=== PATIENT | female | born 1980 | race Caucasian/White ===

== ENCOUNTER → 2022-10-30 08:47 | Outpatient (BNVA) | payer MEDICARE, OTHER, SELFPAY | PROVIDERS: PCP Family Medicine; Visit Provider Registered Nurse | DX: Z79.899 Other long term (current) drug therapy (principal); F51.5 Nightmare disorder | CPT/HCPCS: 80053; 80061; 80164; 82306; 82607; 83036; 84443; 85025 ==

== ENCOUNTER → 2024-05-12 16:25 | Outpatient (BNVA) | payer MEDICARE, OTHER, SELFPAY ==
[2023-03-05 11:23] VITALS: BP 137/89; BMI 51.2
== END ==
PROVIDERS: PCP Family Medicine; Visit Provider Psychiatry & Neurology Psychiatry
DX: Z79.899 Other long term (current) drug therapy (principal)
CPT/HCPCS: 80053; 80061; 80164; 83036; 84443; 85025

== ENCOUNTER 2025-06-12 16:14 | Inpatient (IN) | payer MEDICARE, MEDICAID, SELFPAY ==
[2023-03-05 11:23] VITALS: BP 137/89; BMI 51.2
[2025-06-12 16:15] VITALS: BP 177/120; PULSE 76; RESP 16; TEMP 36.6; O2SAT 97; BMI 47.6
--- NOTE | 2025-06-12 16:18 | W.ED.GENADLT ---
HPI - General Adult General: Chief complaint: Psychiatric Symptoms Stated complaint: SI/HI Time Seen by Provider: 06/12/25 16:15 History of Present Illness: 44-year-old female who presents to the emergency room via EMS from the [facility]. She arrived there and was making homicidal and suicidal comments. Patient informed endorsed to me that she was very angry she done with everything. She says she has many different ways that she could harm herself she declines to extrapolate any further denies doing anything to harm herself to this point. She also commented that she became very upset with the social welfare clerk at the [facility] and wanted to hurt her. She has no behavioral outburst while she is here. She is seen at. [facility] and [place] regularly. 1 previous hospitalization in 2017 Associated symptoms: Deny chest pain, dyspnea or rash Related Data Home Medications ?Medication ?Instructions ?Recorded ?Confirmed albuterol sulfate 90 mcg/actuation 2 puff inhalation QID PRN 10/30/22 06/12/25 aerosol inhaler Shortness Of Breath Or Wheezing levothyroxine 112 mcg capsule 112 mcg PO DAILY 10/30/22 06/12/25 tiotropium bromide 18 mcg capsule 1 cap inhalation DAILY 05/12/24 06/12/25 with inhalation device (Spiriva with HandiHaler) aspirin 325 mg tablet 325 mg PO DAILY 11/03/24 06/12/25 lisinopril 10 mg tablet 10 mg PO DAILY 11/03/24 06/12/25 folic acid 1 mg tablet 1 mg PO DAILY 06/12/25 06/12/25 Previous Rx's ?Medication ?Instructions ?Recorded benztropine 2 mg tablet 2 mg PO BEDTIME #30 tabs 05/10/25 buspirone 15 mg tablet 45 mg (3 x 15 mg) PO BEDTIME #90 05/10/25 tabs divalproex 500 mg tablet,delayed 1,500 mg (3 x 500 mg) PO BEDTIME 05/10/25 release (Depakote) #90 tabs duloxetine 60 mg capsule,delayed 60 mg PO .daily in AM #30 caps 05/10/25 release haloperidol 5 mg tablet 25 mg (5 x 5 mg) PO BEDTIME #150 05/10/25 tabs prazosin 5 mg capsule 5 mg PO BEDTIME #30 caps 05/10/25 trazodone 100 mg tablet 50 - 100 mg (0.5 - 1 x 100 mg) PO 05/10/25 DAILY #30 tabs Allergies Allergy/AdvReac Type Severity Reaction Status Date / Time bupropion (From Wellbutrin) Allergy Mild Tremors Verified 05/10/25 12:09 fluoxetine (From Prozac) Allergy Mild ADR-Nausea Verified 05/10/25 12:09 alprazolam (From Xanax) Allergy nausea Verified 05/10/25 12:09 Review of Systems Const: Denies: fever(s) or chills Card: Denies: chest pain Resp: Denies: dyspnea GI: Denies: abdominal pain : Denies: dysuria, urinary frequency or urinary urgency Musc: Denies: neck pain or back pain Skin/Breast: Denies: rash PFSH ED PFSH: Medical History Hypersomnia Snoring Insomnia Chronic post-traumatic stress disorder Borderline personality disorder Schizoaffective disorder, bipolar type Nightmares Psychiatric care Physical Exam Const: COMMON NORMALS: no acute distress GENERAL APPEARANCE: cooperative and comfortable ORIENTATION/CONSCIOUSNESS: Yes awake, Yes oriented to person, Yes oriented to place and Yes oriented to time HENMT: COMMON NORMALS: normocephalic, atraumatic and hearing grossly normal bilaterally HEAD & SCALP: normocephalic and atraumatic Resp: COMMON NORMALS: normal respiratory effort, No retractions, No use of accessory muscles and clear to auscultation bilaterally AUSCULTATION: clear to auscultation bilaterally Cardio: COMMON NORMALS: regular rate, regular rhythm and No murmurs present (Cardio) RATE: regular rate RHYTHM: regular rhythm GI: COMMON NORMALS: Soft to palpation and No hepatosplenomegaly present AUSCULTATION: Yes normoactive bowel sounds PALPATION: Yes Soft to palpation, No Tenderness to palpation present (GI), No Guarding due to palpation present (GI) and Yes No hepatosplenomegaly present Extremity: COMMON NORMALS: normal to inspection, capillary refill normal, no clubbing, cyanosis or edema, no calf tenderness and no pedal edema Neuro: SENSORIUM/ORIENTATION: Yes oriented to person, Yes oriented to place and Yes oriented to time Skin: COMMON NORMALS: no rashes or lesions noted GENERAL SKIN EXAM: no rashes or lesions noted Course Vital Signs: Vital signs: Vital Signs Temperature 98 F 06/12/25 16:15 Pulse Rate 76 06/12/25 16:15 Respiratory Rate 16 06/12/25 16:15 Blood Pressure 177/120 06/12/25 16:15 Pulse Oximetry 97 06/12/25 16:15 Oxygen Delivery Me thod Room Air 06/12/25 16:15 MDM - General Adult Medical Decision Making Medical decision making Social determinants: Poor social support I reviewed the patient's medical record. I reviewed the patient's current home meds Alternate historians: None Differential diagnosis suicidal ideation, homicidal ideation, depression Lab Review: Labs reviewed. Very mild elevation in white count no signs of infection on exam. CMP normal toxicology was negative Imaging: None Assessment of risk: Level of risk: High Hospitalization considerations: Admit for suicidal ideation Reexamination: Unchanged Assessment and plan: Patient placed on a 96-hour hold for suicidal ideation. Discussed Dr. Heart orders written will admit. Medical Records I reviewed the patient's medical records. Lab Data I reviewed the patient's lab results. 06/12/25 16:28 06/12/25 16:28 Laboratory Results WBC 11.58 10^3/uL (3.29-11.43) H 06/12/25 16:28 RBC 5.53 10^6/uL (3.85-5.65) 06/12/25 16:28 Hgb 15.90 g/dL (11.27-16.99) 06/12/25 16:28 Hct 46.8 % (36-47) 06/12/25 16:28 MCV 84.6 fl (85-98) L 06/12/25 16:28 MCH 28.8 pg (27-33) 06/12/25 16:28 MCHC 34.0 g/dL (30-55) 06/12/25 16:28 RDW 12.9 % (12.1-15.1) 06/12/25 16:28 Plt Count 241 10^3/cmm (157-399) 06/12/25 16:28 MPV 10.2 fL (7.4-10.4) 06/12/25 16:28 Neut % (Auto) 69.1 % 06/12/25 16:28 Lymph % (Auto) 23.7 % 06/12/25 16:28 Arroyo % (Auto) 4.9 % 06/12/25 16: Eos % (Auto) 1.6 % 06/12/25 16: Baso % (Auto) 0.4 % 06/12/25 16:28 Neut # (Auto) 7.98 10^3/uL (1.8-7.7) H 06/12/25 16: Lymph # (Auto) 2.8 10^3/uL (0.8-4.8) 06/12/25 16:28 Arroyo # (Auto) 0.6 10^3/uL (0.2-0.9) 06/12/25 16: Eos # (Auto) 0.2 10^3/uL (0.0-0.8) 06/12/25 16: Baso # (Auto) 0.1 10^3/uL (0.0-0.1) 06/12/25 16: Nucleated RBC % (auto) 0 % 06/12/25 16: Nucleated RBCs # 0.0 /100WBC 06/12/25 16:28 Sodium 134 mmol/L (136-145) L 06/12/25 16: Potassium 4.2 mmol/L (3.5-5.1) 06/12/25 16: Chloride 100 mmol/L (98-107) 06/12/25 16: Carbon Dioxide 24 mmol/L (22-29) 06/12/25 16: Anion Gap 14.2 (5-19) 06/12/25 16:28 BUN 7 mg/dL (6-20) 06/12/25 16: Creatinine 0.7 mg/dL (0.5-0.9) 06/12/25 16:28 GFR Calculation 91.3 mL/min (90-130) 06/12/25 16:28 Glucose 104 mg/dL (65-115) 06/12/25 16: Calculated Osmolality 276 mOsm/kg (285-295) L 06/12/25 16:28 Calcium 9.4 mg/dL (8.5-10.5) 06/12/25 16: Total Bilirubin 0.3 mg/dL (0.15-1.2) 06/12/25 16: AST 21 U/L (0-32) 06/12/25 16:28 ALT 24 U/L (0-33) 06/12/25 16:28 Alkaline Phosphatase 184 U/L (35-105) H 06/12/25 16:28 Total Protein 7.1 g/dL (6.6-8.7) 06/12/25 16:28 Albumin 3.9 g/dL (3.5-5.2) 06/12/25 16:28 Globulin 3.2 g/dL (1.3-4.6) 06/12/25 16:28 Salicylates < 0.3 mg/dL (3-10) L 06/12/25 16:28 Acetaminophen < 5.0 ug/mL (10-30) L 06/12/25 16:28 No radiology studies performed this visit Discharge Plan Discharge Patient Disposition: Admitted As Inpatient Admit Provider: Moris Heart Clinical Impression: Suicidal ideation, Borderline personality disorder, Schizoaffective disorder, bipolar type, Chronic post-traumatic stress disorder Condition: Stable Coding Level of Care Code ED Utility Division Project Manager for Sharda Carvajal
--- OUTSIDE RECORDS SUMMARY | 2025-06-12 16:19 | XMS_ITS | Encounter Summary ---
Author Organization [facility] Address [address] [place] [address] Care Team Providers Care Clinical Trial Manager Name Role Phone Tammie Flores MD Primary Care Provider [phone]- [phone] Encounter Details Date Type Department Care Team (Latest Contact Info) Description 04/12/2025 Results Follow-Up [facility] Cancer [facility] Hematology [place] [address] [place] [address] Davie Ramirez MD [address] [place] [address] HOMOCYSTEINE, COMPREHENSIVE METABOLIC PANEL, CBC WITH DIFFERENTIAL Social History Tobacco Use Types Packs/Day Years Used Date Smoking Tobacco: Every Day Cigarettes 1.5 25 Smokeless Tobacco: Never Comments Unknown Sex and Gender Information Value Date Recorded Sex Assigned at Not on file 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 Gender Identity Not on file Sexual Orientation Not on file documented as of this encounter Plan of Treatment Upcoming Encounters Date Type Department Care Team (Late st Contact Info) Description 10/09/2025 1:30 PM CDT Office Visit [facility] Hematology [place] [address] [phone] Davie Ramirez MD [address] [place] [address] documented as of this encounter Visit Diagnoses Not on filedocumented in this encounter Care Teams Clinical Trial Manager Relationship Specialty Start Date End Date Tammie Flores MD [address] [place] [address] PCP - General Family Practice 11/03/23 documented as of this encounter
--- OUTSIDE RECORDS SUMMARY | 2025-06-12 16:19 | XMS_ITS | Clinical Summary ---
Author Organization [facility] Address [address] [address] Phone Care Team Providers Care Electronic Test Technician Name Role Phone Tammie Flores MD Primary Care Provider [phone]- [phone] Allergies Active Allergy Reactions Criticality Noted Date Comments Sulfamethoxazole-Trimethoprim Wheezing Medium 2023 Bupropion Itching Low 09/23/2023 Clonazepam Other Low 09/23/2023 Lethargic Clonidine Other Low 09/23/2023 Fluoxetine Other Low 09/23/2023 Medications albuterol (Proventil;Vent pedro) 90 mcg/actuation inhaler Inhale 2 puffs every 4 (four) hours if needed. 3 Active DULoxetine (Cymbalta) [address] capsule Take 60 mg by mouth 1 (one) time each day. 4 Active divalproex (Depakote) 500 mg EC tablet Take 1,500 mg by mouth every night. 4 Active furosemide (Lasix) 40 mg tablet Take 40 mg by mouth 1 (one) time each day. 4 Active haloperidoL (Haldol) 5 mg tablet Take 25 mg by mouth every night. 4 Active levothyroxine (Synthroid, Levoxyl) 112 mcg tablet Take 112 mcg by mouth 1 (one) time each day. 3 Active nystatin (Mycostatin) 100,000 unit/gram powder Apply 1 Application topically 2 (two) times a day. 3 Active Klor-Con M20 20 mEq ER tablet Take 20 mEq by mouth 1 (one) time each day. 4 Active prazosin (Minipress) 5 mg capsule Take 5 mg by mouth every night. 4 Active propranoloL (Inderal) 40 mg tablet Take 40 mg by mouth 2 (two) times a day. 4 Active montelukast (Singulair) 10 mg tablet Take 10 mg by mouth 1 (one) time each day. 4 Active busPIRone (Buspar) 15 mg tablet Take 45 mg by mouth every night. 4 Active metFORMIN (Glucophage) 500 mg tablet Take 500 mg by mouth 2 (two) times a day. 4 Active medroxyPROGESTE Tc (Depo-Provera) 150 mg/mL syringe injection syringe Inject 1 mg into the shoulder, thigh, or buttocks every 3 (three) months. 4 Active cholecalciferol (Vitamin D-3) 25 mcg (1,000 unit) tablet Take 1,000 Units by mouth 1 (one) time each day. Active calcium 500 mg calcium (1,250 mg) tablet Take 1 tablet by mouth 1 (one) time each day. Active traZODone (Desyrel) 100 mg tablet Take 100 mg by mouth every night. Active benztropine (Cogentin) 1 mg tablet Take 2 mg by mouth every night. Active lisinopriL (Prinivil, Zestril) 30 mg tabletIndicatio ns:hypertension Take 30 mg by mouth 1 (one) time each day. Active apixaban (Eliquis) 5 mg tablet Take 2 tablets (10 mg total) by mouth 2 (two) times a day for 5 days, THEN 1 tablet (5 mg total) 2 (two) times a day. 80 tablet 4 Active Active Problems Problem Noted Date Diagnosed Date Acute saddle pulmonary embolism 09/23/2023 Acute saddle pulmonary embol ism, unspecified whether acute cor pulmonale present 09/23/2023 Class 3 severe obesity due t o excess calories with serious comorbidity and body mass index (BMI) of 50.0 to 59.9 in adult 09/23/2023 Social History Tobacco Use Types Packs/Day Years Used Date Smoking Tobacco: Every Day Cigarettes 1 29.9 Started: 1995 Passive Smoke Exposure: Current Smokeless Tobacco: Never Tobacco Cessation:Ready to Q uit: Yes; Counseling Given: No Alcohol Use Standard Drinks/Week Comments Never 0 (1 standard drink = 0.6 oz pur e alcohol) [facility] Utilities Answer Date Recorded In the past 12 months has e electric, gas, oil, or water company threatened to shut off services in your home? Patient declined 09/24/2023 Humiliation, Afraid, Rape, and Kick questionnair e Answer Date Recorded Within the last year, have y ou been afraid of your partner or ex-partner? Patient declined 09/24/2023 Within the last year, have y ou been humiliated or emotionally abused in other ways by your partner or ex-partner? Patient declined 09/24/2023 Within the last year, have y ou been kicked, hit, slapped, or otherwise physically hurt by your partner or ex-partner? Patient declined 09/24/2023 Within the last year, have y ou been raped or forced to have any kind of sexual activity by your partner or ex-partner? Patient declined 09/24/2023 Social Connection and Isolation Panel Answer Date Recorded In a typical week, how many times do you talk on the phone with family, friends, or neighbors? Patient declined 09/24/2023 How often do you get togethe r with friends or relatives? Patient declined 09/24/2023 How often do you attend rastafarian or gnosticist serv ices? Patient declined 09/24/2023 Do you belong to any clubs o r organizations such as rastafarian groups, unions, fraternal or athletic groups, or school groups? Patient declined 09/24/2023 How often do you attend meet ings of the clubs or organizations you belong to? Patient declined 09/24/2023 Are you , , di vorced, , never , or living with a partner? Patient declined 09/24/2023 AUDIT-C Answer Date Recorded Q1: How often do you have a drink containing alc ohol? Patient declined 09/24/2023 Q2: How many drinks containi ng alcohol do you have on a typical day when you are drinking? Patient declined 09/24/2023 Q3: How often do you have si x or more drinks on one occasion? Patient declined 09/24/2023 Overall Financial Resource Strain (CARDIA) Answe r Date Recorded How hard is it for you to pa y for the very basics like food, housing, medical care, and heating? Patient declined 09/24/2023 [facility] - Occupational Stress Questionnaire Answer Date Recorded Do you feel stress - tense, restless, nervous, or anxious, or unable to sleep at night because your mind is troubled all the time - these days? Patient declined 09/24/2023 Exercise Vital Sign Answer Date Recorde d On average, how many days pe r week do you engage in moderate to strenuous exercise (like a brisk walk)? Patient declined On average, how many minutes do you engage in exercise at this level? Patient declined 09/24/2023 Hunger Vital Sign Answer Date Recorded Within the past 12 months, y ou worried that your food would run out before you got the money to buy more. Patient declined Within the past 12 months, t he food you bought just didn't last and you didn't have money to get more. Patient declined PRAPARE - Transportation Answer Date Re corded In the past 12 months, has l ack of transportation kept you from medical appointments or from getting medications? Patient declined 09/24/2023 In the past 12 months, has l ack of transportation kept you from meetings, work, or from getting things needed for daily living? Patient declined 09/24/2023 Housing Stability Vital Sign Answer Iglesia e Recorded In the last 12 months, was t here a time when you were not able to pay the mortgage or rent on time? Patient declined 09/24/19 24 In the last 12 months, how many places have you lived? 1 09/24/2023 In the last 12 months, was t here a time when you did not have a steady place to sleep or slept in a care home (including now)? Patient declined 09/24/2023 Comments No Sex and Gender Information Value Date Recorded Sex Assigned at Not on file Legal Sex Female 10:47 AM CDT Gender Identity Not on file Sexual Orientation Not on file Last Filed Vital Signs Vital Sign Reading Time Taken Comments Blood Pressure 130/65 09/25/2023 10:04 AM CDT Pulse 75 09/25/2023 10:04 AM CDT Temperature 36.1 C (96.9 F) 09/25/2023 10:04 AM CDT Respiratory Rate 26 09/25/2023 10:04 AM CDT Oxygen Saturation 97% 09/25/2023 10:04 AM CDT Inhaled Oxygen Concentration - - Weight 143 kg (315 lb 7.7 oz) 09/25/2023 2:51 AM CDT Height 167.6 cm (5' 6 ) 09/23/2023 11:30 AM CDT Body Mass Index 50.92 09/23/2023 11:30 AM CDT Plan of Treatment Health Maintenance Due Date Last Done Comments Lipid Panel 1981 MMR Vaccines (1 of 1 - Standard series) 1982 Varicella Vaccines (1 of 2 - 13+ 2-dose series) 1994 Depression Screening 11/20/1999 Diabetes Screening 11/20/1999 Social Drivers of Health (SDoH) 11/20/1999 Hepatitis B Vaccines (1 of 3 - 19+ 3-dose series) 2000 Pneumococcal Vaccines (1 of 2 - PCV) 2000 Medicare Initial AWV [id number] 11/10/2002 Pap Smear 2002 HPV Vaccines (1 - 3-dose SCDM series) 2008 Cervical Cancer Screening 11/20/2011 HPV/Cotest 11/20/2011 Mammogram 2021 Creatinine Level 09/23/2024 09/24/2023 Potassium Level 09/23/2024 09/24/2023 COVID-19 Vaccine ( - season) 2025 Influenza Vaccine (#1) 2025 3, 04/24/2017, 09/16/2016, Additional history exists DTaP,Tdap,and Td Vaccines (7 - Td or Tdap) 10/29/2026 10/29/2016, 07/26/2013, 04/10/1993, Additional history exists Zoster Vaccines (1 of 2) 11/20/2031 RSV Vaccines (1 - 1-dose 75+ series) 2056 IPV Vaccines Completed 02/23/1987, 06/12, 06/24/1982 HIB Vaccines Aged Out No longer eligi ble based on patient's age to complete this topic Hepatitis A Vaccines Aged Out No long er eligible based on patient's age to complete this topic Meningococcal B Vaccine Aged Out No l onger eligible based on patient's age to complete this topic Meningococcal Vaccine Aged Out No jannie rafal eligible based on patient's age to complete this topic Rotavirus Vaccines Aged Out No longer eligible based on patient's age to complete this topic Procedures Procedure Name Priority Date/Time Associated Diagnosis Comments COMPREHENSIVE METABOLIC PANEL Routine 09/24/2023 4:26 AM CDT from Last 3 Months or Most Recently Relevant to Health Maintenance Results * (ABNORMAL) Comprehensive Metabolic Panel (09/24/2023 4:26 AM CDT) [facility] Glucose 94 70 - 100 mg/dL LAB CHEMISTRY METHOD 09/24/2023 4:58 AM CDT [facility] BUN 6(L) 7 - 17 mg/dL LAB CHEMISTRY METHOD 09/24/2023 4:58 AM CDT [facility] Creatinine 0.72 0.52 - 1.04 mg/dl LAB CHEMISTRY METHOD 09/24/2023 4:58 AM CDT [facility] BUN/Creatinine Ratio 8(L) 12 - 17 LAB CHEMISTRY METHOD 09/24/2023 4:58 AM CDT [facility] Sodium 138 135 - 145 mmol/L LAB CHEMISTRY METHOD 09/24/2023 4:58 AM CDT [facility] Potassium 4.1 3.6 - 5.0 mmol/L LAB CHEMISTRY METHOD 09/24/2023 4:58 AM CDT [facility] Chloride 107 101 - 111 mmol/L LAB CHEMISTRY METHOD 09/24/2023 4:58 AM CDT [facility] Total Carbon Dioxide 29 22 - 30 mmol/L LAB CHEMISTRY METHOD 09/24/2023 4:58 AM CDT [facility] Anion Gap 6(L) 9 - 17 mmol/L LAB CHEMISTRY METHOD 09/24/2023 4:58 AM CDT [facility] Calcium 8.5 8.2 - 10.2 mg/dL LAB CHEMISTRY METHOD 09/24/2023 4:[address] [facility] Total Protein, Serum 6.0 5.6 - 8.5 g/dL LAB CHEMISTRY METHOD 09/24/2023 4:58 AM CDT [facility] Albumin 2.5(L) 3.5 - 5.2 g/dL LAB CHEMISTRY METHOD 09/24/2023 4:58 AM CDT [facility] GLOBULIN 3.5 2.1 - 3.8 g/dL LAB CHEMISTRY METHOD 09/24/2023 4:58 AM CDT [facility] A/G Ratio 0.7(L) 1.4 - 1.7 LAB CHEMISTRY METHOD 09/24/2023 4:58 AM CDT [facility] Bilirubin, Total 0.2 0.1 - 1.3 mg/dL LAB CHEMISTRY METHOD 09/24/2023 4:58 AM CDT [facility] Alkaline Phosphatase 104 45 - 117 U/L LAB CHEMISTRY METHOD 09/24/2023 4:58 AM CDT [facility] ALT (SGPT) 23 11 - 58 U/L LAB CHEMISTRY METHOD 09/24/2023 4:58 AM CDT [facility] AST (SGOT) 22 9 - 55 U/L LAB CHEMISTRY METHOD 09/24/2023 4:58 AM CDT [facility] eGFR >60 >=60 mL/min/1. 73 m2 LAB CHEMISTRY METHOD 09/24/2023 4:58 AM CDT [facility] Blood Venous blood specimen / Unknown Venipuncture / Unknown 09/24/2023 4:26 AM CDT 09/24/2023 4:30 AM CDT Adrian Hillman DO LAB BLOOD ORDERABLES Fi nal Result Performing Organization Address [facility] de Phone Number 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
--- OUTSIDE RECORDS SUMMARY | 2025-06-12 16:19 | XMS_ITS | Clinical Summary ---
Author Organization [facility] [address] [facility] Address [address] [facility] [place] [address] Care Team Providers Care Slip Feeder Name Role Phone Unavailable Primary Care Provider Unavailabl e Allergies Active Allergy Reactions Criticality Noted Date Comments Fluoxetine Hypokalemia Medium 07/17/2015 Metolazone Hypokalemia Medium 01/15/2017 Medications levothyroxine 100 mcg tablet Take 1 Tablet (100 mcg) by mouth daily early childhood coordinator. 30 Tablet 6 7 Active nystatin (MYCOSTATIN) 100,000 unit/gram CreamIndications :Intertrigo Apply to affected area 2 times daily Use on rash in groin fold area BID. 30 Gram 7 Active albuterol HFA 90 mcg inhalerIndicatio ns:Wheezing on expiration,Wheez ing-associated respiratory infection (WARI) Take 2 Puffs by inhalation every 6 hours as needed for Shortness of Breath or Wheezing. 6.7 Gram 7 Active furosemide (LASIX) 20 mg tabletIndication s:Bilateral edema of lower extremity Take 1 Tablet (20 mg) by mouth daily. 30 Tablet 1 7 Active benztropine (COGENTIN) 1 mg tablet Take 1 mg by mouth daily. Active DULoxetine (CYMBALTA) 30 mg Capsule, Delayed Release(E.C.) Take 30 mg by mouth daily. Active traZODone (DESYREL) 100 mg tablet Take 100 mg by mouth daily at bedtime. Active divalproex (DEPAKOTE) 500 mg delayed release tablet Take 500 mg by mouth 3 times daily. Active prazosin (MINIPRESS) 1 mg capsule Take 3 mg by mouth daily at bedtime. Active potassium chloride (KLOR-CON) 10 mEq Extended Release tablet TAKE ONE TABLET BY MOUTH ONCE DAILY 30 Tablet 2 7 Active Active Problems Problem Noted Date Diagnosed Date Morbid obesity with BMI of 45.0-49.9, adult 01/10 Bilateral edema of lower extremity 09/14/2016 History of drug abuse 10/20/2015 Screening for cervical cancer 06/01/2015 Overview (07/17/2015): Normal pap 05/2014 Vitamin D deficiency 05/25/2015 Overview (09/10/2016): Uncontrolled Bipolar disorder in full remission 04/16/2015 Overview (06/01/2015): Sees psych Schizoaffective disorder, bipolar type 5 Intermittent explosive disorder 04/16/2015 HTN (hypertension), benign 02/07/2015 Acquired hypothyroidism 02/07/2015 Tobacco abuse 02/07/2015 Overview (12/25/2015): YAYO (obstructive sleep apnea) 02/07/2015 Overview (04/16/2015): On CPAP Resolved Problems Problem Noted Date Diagnosed Date Resolved Date Obesity (BMI 30-39.9) 09/14/20162016 Morbid obesity with body mas s index of 40.0-49.9 12/25/2015 09/14/2016 Gastroesophageal reflux disease 10/20/2015 12/25/2015 Elevated liver enzymes 07/26/201509/23 Overview (07/26/2015): Mild Morbid obesity with BMI of 45.0-49.9, adult 07/17/2015 12/24/2015 Bilateral edema of lower extremity 06/01/2015 07/17/2015 Hypokalemia 06/01/2015 07/17/2015 Elevated alkaline phosphatase level 04/24/2015 09/23/2016 Gastroesophageal reflux dise ase without esophagitis 02/07/2015 04/16/2015 Morbid obesity with BMI of 50.0-59.9, adult 02/07/2015 07/17/2015 Anxiety and depression 02/07/201504/16 Mood disorder 02/07/2015 04/16/2015 Immunizations Immunization Administration Dates Next Due INFLUENZA VACCINE QUADRIVALENT 3 YR UP PF IM 01/2017 Influenza Vaccine Split 3+ Yrs PF IM 04/16/2015 Social History Tobacco Use Types Packs/Day Years Used Date Smoking Tobacco: Every Day Smokeless Tobacco: Never Tobacco Cessation:Ready to Q uit: No Comments No Sex and Gender Information Value Date Recorded Sex Assigned at Not on file Legal Sex Female 1:23 PM CDT Gender Identity Not on file Sexual Orientation Not on file Last Filed Vital Signs Vital Sign Reading Time Taken Comments Blood Pressure 124/70 02/12/2017 1:11 PM CDT Pulse 95 02/12/2017 1:11 PM CDT Temperature 36.7 C (98 F) 02/12/2017 1:11 PM CDT Respiratory Rate 18 02/12/2017 1:11 PM CDT Oxygen Saturation 96% 02/12/2017 1:11 PM CDT Inhaled Oxygen Concentration - - Weight 135.2 kg (298 lb) 02/12/2017 1:11 PM CDT Height 167.6 cm (5' 6 ) 02/12/2017 1:11 PM CDT Body Mass Index 48.1 02/12/2017 1:11 PM CDT Plan of Treatment Health Maintenance Due Date Last Done Comments Pre-Diabetes and Diabetes Screening 1981 DTAP/TDAP/TD VACCINES (1 - Tdap) 2000 HEPATITIS B VACCINES (1 of 3 - 19+ 3-dose series) 2000 HPV/Cotest (21-29) 2002 HPV VACCINES (1 - 3-dose SCDM series) 2008 HPV/Cotest (30-65) 11/20/2011 CERVICAL CANCER SCREENING 06/07/2017 PAP SMEAR 06/07/2017 06/07/2014, 06/07/2014 BREAST CANCER SCREENING 2021 INFLUENZA VACCINE (#1) 2025 09/16/2016, 2014 Procedures Procedure Name Priority Date/Time Associated Diagnosis Comments CERV/VAG CYTOPATH, THIN PREP Routine 06/07/2014 from Last 3 Months or Most Recently Relevant to Health Maintenance Results * CERV/VAG CYTOPATH, THIN PREP (06/07/2014) Endocervical us Abstract Spg Provider PATHOLOGY/CYTOLOGY ORDERAB LES Final Result [facility] CLIA# [id number] [place] [address] from Last 3 Months or Most Recently Relevant to Health Maintenance Insurance MEDICAID [place] MEDICARE PART A AND B Advance Directives For more information, please contact: [phone] Documents on File Type Date Recorded Patient Mechanic Driver Expl anation Advance Directive POA 05/28/2017 3:49 PM Advance Directive POA
--- OUTSIDE RECORDS SUMMARY | 2025-06-12 16:19 | XMS_ITS | Clinical Summary ---
Author Organization [facility] Address [address] [facility] Attn: Epic Prelude ADT [place] [address] Care Team Providers Care Monumental Stonemason Name Role Phone Tammie Flores MD Primary Care Provider [phone] Allergies Active Allergy Reactions Criticality Noted Date Comments Bupropion Itching Low 09/23/2023 Clonazepam Other (See Comments) Low 09/23/2023 Lethargic Clonidine Other (See Comments) Low 09/23/2023 Fluoxetine Hypokalemia,Other (S ee Comments) Medium 07/17/2015 Metolazone Hypokalemia Medium 01/15/2017 Sulfamethoxazole-Trimetho prim Other (See Comments) Medium 09/23/2023 Medications traZODone (DESYREL) 100 mg tablet Take 100 mg by mouth daily at bedtime. 7 Active prazosin (MINIPRESS) 5 mg capsule take 1 capsule by mouth at bedtime Active levothyroxine 112 mcg tablet Take 112 mcg by mouth daily. Active lisinopriL (PRINIVIL) 30 mg tablet Take 10 mg by mouth daily. Active DULoxetine (CYMBALTA) 60 mg Capsule, Delayed Release(E.C.) take 1 capsule by mouth once daily in the morning Active cholecalciferol, vitamin D3, 1,000 unit Take 1,000 Units by mouth daily. Active busPIRone (BUSPAR) 15 mg Tablet take 3 tablets by mouth at bedtime Active Eliquis 5 mg tablet Take 5 mg by mouth 2 times daily. Active albuterol sulfate HFA 90 mcg/actuation aerosol inhaler Take 2 Puffs by inhalation. 3 Active benztropine (COGENTIN) 2 mg tablet Take 2 mg by mouth daily at bedtime. 4 Active divalproex (DEPAKOTE) 500 mg delayed release tablet Take 1,500 mg by mouth daily at bedtime. 4 Active haloperidoL (HALDOL) 5 mg tablet TAKE 5 TABLETS BY MOUTH AT BEDTIME 4 Active Spiriva Respimat 2.5 mcg/actuation Mist 4 Active zinc gluconate 50 mg Tablet Take 50 mg by mouth 2 times daily. Active ascorbic acid, vitamin C, (VITAMIN C) 1,000 mg Tablet Take 1,000 mg by mouth 2 times daily. Active folic acid (FOLVITE) 1 mg tabletIndications :Compound heterozygous MTHFR mutation [id number] Take 1 Tablet (1 mg) by mouth daily. 90 Tablet 1 5 Active aspirin (GUMARO) 325 mg tablet Take 325 mg by mouth daily. 5 Active Active Problems Problem Noted Date Diagnosed Date Compound heterozygous MTHFR mutation [id number] 12/16/2023 Hyperhomocysteinemia 12/16/2023 Borderline personality disorder 11/18/2023 Class 3 severe obesity due t o excess calories with serious comorbidity and body mass index (BMI) of 50.0 to 59.9 in adult 09/23/2023 Saddle embolus of pulmonary artery 09/23/2023 Morbid obesity with BMI of 45.0-49.9, adult 01/10 Bilateral edema of lower extremity 09/14/2016 Screening for cervical cancer 06/01/2015 Overview (11/08/2020): Normal pap 05/2014 Vitamin D deficiency 05/25/2015 Overview (11/08/2020): Uncontrolled Bipolar disorder in full remission 04/16/2015 Overview (11/08/2020): Sees psych Schizoaffective disorder, bipolar type 5 Intermittent explosive disorder 04/16/2015 HTN (hypertension), benign 02/07/2015 Acquired hypothyroidism 02/07/2015 Tobacco abuse 02/07/2015 YAYO (obstructive sleep apnea) 02/07/2015 Overview (11/08/2020): On CPAP Resolved Problems Problem Noted Date Diagnosed Date Resolved Date Obesity (BMI 30-39.9) 09/14/20162016 Morbid obesity with body mas s index of 40.0-49.9 12/25/2015 09/14/2016 Gastroesophageal reflux disease 10/20/2015 12/25/2015 History of drug abuse 10/20/20152023 Elevated liver enzymes 07/26/201509/23 Overview (11/07/2020): Mild Morbid obesity with BMI of 45.0-49.9, adult 07/17/2015 12/24/2015 Hypokalemia 06/01/2015 07/17/2015 Bilateral edema of lower extremity 06/01/2015 07/17/2015 Elevated alkaline phosphatase level 04/24/2015 09/23/2016 Gastroesophageal reflux dise ase without esophagitis 02/07/2015 04/16/2015 Morbid obesity with BMI of 50.0-59.9, adult 02/07/2015 07/17/2015 Mood disorder 02/07/2015 04/16/2015 Anxiety and depression 02/07/201504/16 Encounters Date Type Department Care Team Description 05/22/2025 12:38 PM WOOD MILLER - 05/22/2025 11:59 PM [facility] Hospital Encounter [facility] CT Scan [place] [address] [place] [phone] Florinda Cui DO Discharge Disposition: Home or Self Care 05/17/2025 External Device Data [facility] [place]CTION Provider, Abstract 05/16/2025 Telephone [facility] [address] [place] [phone] Florinda Cui DO Needs Appointment 05/11/2025 Orders Only [facility] [address] [phone] Florinda Cui DO Splenic artery aneurysm (Primary Dx) 05/10/2025 External Device Data [facility]STRACTION Provider, Abstract 05/02/2025 External Device Data [place]CTION Provider, Abstract 04/12/2025 Results Follow-Up [facility] [phone] [place] [phone] Davie Ramirez MD HOMOCYSTEINE, COMPREHENSIVE METABOLIC PANEL, CBC WITH DIFFERENTIAL 04/11/2025 1:00 PM CDT Office Visit [facility] [place] [phone] [place] [phone] Davie Ramirez MD History of pulmonary embolism (Primary Dx); Personal history of DVT (deep vein thrombosis); Compound heterozygous MTHFR mutation [id number]; Hyperhomocysteinemia; Morbid obesity with BMI of 45.0-49.9, adult ([facility]); Tobacco abuse; Schizoaffective disorder, bipolar type ([facility]) 03/26/2025 Refill [facility] [phone] [place] [phone] Davie Ramirez MD Compound heterozygous MTHFR mutation [id number] (Primary Dx) from Last 3 Months Immunizations Immunization Administration Dates Next Due INFLUENZA VACCINE QUADRIVALENT 3 YR UP PF IM 01/2017 Influenza Vaccine Split 3+ Yrs PF IM 04/16/2015 Family History Medical History Relation Name Comments cardiac pulmonary imbolism Father P assed in july due to cardiac pulmonary imbolism Heart Disease Maternal Grandfather Heart Failure Maternal Grandfather Diabetes Maternal Grandmother Heart Disease Maternal Grandmother Hypertension Mother Relation Name Status Comments Father Maternal Grandfather Maternal Grandmother Mother Social History Tobacco Use Types Packs/Day Years Used Date Smoking Tobacco: Every Day Cigarettes 1.5 25 Smokeless Tobacco: Never Tobacco Cessation:Ready to Q uit: Not Asked; Counseling Given: Not Answered Comments Unknown Sex and Gender Information Value Date Recorded Sex Assigned at Not on file Legal Sex Female 11:31 PM WOOD MILLER Gender Identity Not on file Sexual Orientation Not on file Last Filed Vital Signs Vital Sign Reading Time Taken Comments Blood Pressure 158/97 04/11/2025 12:55 PM CDT Pulse 97 04/11/2025 12:55 PM CDT Temperature 35.8 C (96.4 F) 04/11/2025 12:55 PM CDT Respiratory Rate 18 04/11/2025 12:5 5 PM CDT Oxygen Saturation 98% 04/11/2025 12: 55 PM CDT Inhaled Oxygen Concentration - - Weight 137.8 kg (303 lb 12.8 oz) 2024 12:55 PM CDT Height 167.6 cm (5' 6 ) 04/11/2025 12:5 5 PM CDT Body Mass Index 49.03 04/11/2025 12:55 PM CDT Plan of Treatment Upcoming Encounters Date Type Department Care Team (Late st Contact Info) Description 10/09/2025 1:30 PM CDT Office Visit [facility] [place] [phone] [place] [address] [place] [phone] Davie Ramirez MD [address] [place] [address] Health Maintenance Due Date Last Done Comments Pre-Diabetes and Diabetes Screening 1981 DTAP/TDAP/TD VACCINES (5 - Tdap) 04/11/1993 04/10/1993, 02/23/1987, 06/23/1983, Additional history exists HPV/Cotest (21-29) 2002 HPV VACCINES (1 - 3-dose SCD M series) 2008 HPV/Cotest (30-65) 11/20/2011 CERVICAL CANCER SCREENING 06/07/2017 PAP SMEAR 06/07/2017 06/07/2014, 06/07/2014 BREAST CANCER SCREENING 2021 INFLUENZA VACCINE (#1) 2025 09/16/2016, 2014 COVID-19 Vaccine (3 - 2024-2 6 season) 2025 05/09/2021, 04/11/2021 HEPATITIS B VACCINES Completed 02/01/1999, 09/05/1998, 08/08/1998 Procedures Procedure Name Priority Date/Time Associated Diagnosis Comments CTA ABD PELVIS W AND/OR WO CONTRAST Routine 05/22/2025 1:35 PM WOOD MILLER Splenic artery aneurysm CREATININE Stat 05/22/2025 12:45 PM WOOD MILLER CBC WITH DIFFERENTIAL Routine 04/11/2025 1:41 PM CDT History of pulmonary embolism Personal history of DVT (deep vein thrombosis) COMPREHENSIVE METABOLIC PANEL Routine 04/11/2025 1:41 PM CDT History of pulmonary embolism Personal history of DVT (deep vein thrombosis) HOMOCYSTEINE Routine 04/11/2025 1:41 PM CDT History of pulmonary embolism Personal history of DVT (deep vein thrombosis) CERV/VAG CYTOPATH, THIN PREP 06/07/2014 12:00 AM WOOD MILLER from Last 3 Months or Most Recently Relevant to Health Maintenance Results * CTA ABD PELVIS W AND/OR WO CONTRAST (05/22/2025 1:35 PM WOOD MILLER) Anatomical Region Laterality Modality Abdomen Computed Tomogra phy 05/22/2025 2:09 PM WOOD MILLER Narrative 05/22/2025 2:07 PM WOOD MILLER Exam: CTA ABD PELVIS W AND/OR WO CONTRAST Date/Time of Exam: 05/22/2025 1:35 PM Reason For Exam: Aneurysm, renal or visceral. Diagnosis: Splenic artery aneurysm. Technique: CTA of the abdomen was performed prior to and following the administration of intravenous contrast. Post-processing was performed, including sagittal and coronal reformations and 3-D reconstruction. Contrast: Isovue-300 Comparison: 05/10/2024. Findings: Lower chest: The heart size is normal without pericardial effusion. The lung bases are clear. ABDOMEN: The liver is mildly enlarged at 18.7 cm in craniocaudal extent without focal lesion. The attenuation is mildly decreased suggesting a component of hepatic steatosis. The gallbladder is surgically absent. No biliary ductal dilatation. The infused appearance of the pancreas, spleen, and adrenal glands is normal. The kidneys enhance symmetrically without mass or hydronephrosis. No nephroureteral calculi. Small bowel caliber is normal without obstruction. The appendix is not dilated. Mild colonic wall thickening likely relates to underdistention. No free intraperitoneal air or free fluid. Pelvis: No focal bladder wall abnormality. No adnexal mass or free fluid. There is minimal sigmoid colonic diverticulosis. Vascular: The aorta is normal in contour and caliber without aneurysm or dissection. The splenic artery is normal in caliber without evidence of splenic aneurysm. The iliac vessels are patent. MUSCULOSKELETAL: No aggressive appearing osseous lesion. ++++++++++++++++++++ IMPRESSION Normal CTA without evidence of aneurysm. Hepatomegaly and hepatic steatosis. Minimal sigmoid colonic diverticulosis. Procedure Note Joaquin Solomon MD - 05/22/2025 Exam: CTA ABD PELVIS W AND/OR WO CONTRAST Date/Time of Exam: 05/22/2025 1:35 PM Reason For Exam: Aneurysm, renal or visceral. Diagnosis: Splenic artery aneurysm. Technique: CTA of the abdomen was performed prior to and following the administration of intravenous contrast. Post-processing was performed, including sagittal and coronal reformations and 3-D reconstruction. Contrast: Isovue-300 Comparison: 05/10/2024. Findings: Lower chest: The heart size is normal without pericardial effusion. The lung bases are clear. ABDOMEN: The liver is mildly enlarged at 18.7 cm in craniocaudal extent without focal lesion. The attenuation is mildly decreased suggesting a component of hepatic steatosis. The gallbladder is surgically absent. No biliary ductal dilatation. The infused appearance of the pancreas, spleen, and adrenal glands is normal. The kidneys enhance symmetrically without mass or hydronephrosis. No nephroureteral calculi. Small bowel caliber is normal without obstruction. The appendix is not dilated. Mild colonic wall thickening likely relates to underdistention. No free intraperitoneal air or free fluid. Pelvis: No focal bladder wall abnormality. No adnexal mass or free fluid. There is minimal sigmoid colonic diverticulosis. Vascular: The aorta is normal in contour and caliber without aneurysm or dissection. The splenic artery is normal in caliber without evidence of splenic aneurysm. The iliac vessels are patent. MUSCULOSKELETAL: No aggressive appearing osseous lesion. ++++++++++++++++++++ IMPRESSION Normal CTA without evidence of aneurysm. Hepatomegaly and hepatic steatosis. Minimal sigmoid colonic diverticulosis. Florinda Cui DO CT ORDERABLES Final Re sult * (ABNORMAL) CREATININE (05/22/2025 12:45 PM WOOD MILLER) CREATININE 0.99(H) 0.51 - 0.95 mg/dL 05/22/2025 1:14 PM WOOD MILLER [facility] GFR >60 >=60 mL/min/1.7 3 sq meter 05/22/2025 1:14 PM WOOD MILLER [facility] Comment:eGFR calculated with 2020 CKD-EPI equation. Vegetarian diet, extremely high or low muscle mass, and may affect results. Cystatin C with Glomerular Filtration Rate is a suitable alternative for these patients. Blood BLOOD SPECIMEN / Unknown Venipuncture / Unknown 05/22/2025 12:45 PM WOOD MILLER 05/22/2025 12:54 PM WOOD MILLER us Florinda Cui DO CHEMISTRY ORDERABLES Fin al Result [id number] [address] [place] [id number] * (ABNORMAL) CBC WITH DIFFERENTIAL (04/11/2025 1:41 PM CDT) Pathologist [facility] WBC 8.1 3.8 - 10.8 Thousand/u L [facility] RBC 5.15(H) 3.80 - 5.10 Million/uL [facility] HEMOGLOBIN 15.3 11.7 - 15.5 g/dL [facility] HEMATOCRIT 46.3(H) 35.0 - 45.0 % [facility] MCV 89.9 80.0 - 100.0 fL [facility] MCH 29.7 27.0 - 33.0 pg [facility] MCHC 33.0 32.0 - 36.0 g/dL [facility] Comment: For adults, a slight decrease in the calculated MCHC value (in the range of 30 to 32 g/dL) is most likely not clinically significant; however, it should be interpreted with caution in correlation with other red cell parameters and the patient's clinical condition. RDW 13.2 11.0 - 15.0 % [facility] PLATELETS 304 140 - 400 Thousand/u L [facility] MPV 9.8 7.5 - 12.5 fL [facility] NEUTROPHIL ABSOLUTE 5,079 1,500 - 7,800 cells/uL [facility] LYMPHOCYTE ABSOLUTE 2,341 850 - 3,900 cells/uL [facility] MONOCYTE ABSOLUTE 397 200 - 950 cells/uL [facility] EOSINOPHIL ABSOLUTE 267 15 - 500 cells/uL [facility] BASOPHILS ABSOLUTE 16 0 - 200 cells/uL [facility] NEUTROPHIL 62.7 % [facility] LYMPHOCYTES 28.9 % [facility] MONOCYTE 4.9 % [facility] EOSINOPHILS 3.3 % [facility] BASOPHILS 0.2 % [facility] Comment: Test Performed at: [facility] [address] Bryan Pace MD Blood 04/11/2025 1:41 PM CDT 04/12/2025 3:17 AM CDT Davie Ramirez MD HEMATOLOGY ORDERABLES Final Resu lt [facility] [phone] [facility] [address] * (ABNORMAL) HOMOCYSTEINE (04/11/2025 1:41 PM CDT) HOMOCYSTEINE CARDIOVASCULAR 11.2(H) < or = 11.0 umol/L [facility] Comment: Homocysteine is increased by functional deficiency of folate or vitamin B12. Testing for methylmalonic acid differentiates between these deficiencies. Other causes of increased homocysteine include renal failure, folate antagonists such as methotrexate and phenytoin, and exposure to nitrous oxide. Ilnee Todd et al., [employer] Qa Lab Analyst Med. 1999;131(5):331-9. Test Performed [facility]: [facility] [address] Bryan Pace MD Blood 04/11/2025 1:41 PM CDT 04/12/2025 3:17 AM CDT us Davie Ramirez MD CHEMISTRY ORDERABLES Final Resul t [facility] [phone] [facility] [address] [place] [address] * (ABNORMAL) COMPREHENSIVE METABOLIC PANEL (04/11/2025 1:41 PM CDT) GLUCOSE 143(H) 65 - 99 mg/dL [facility] Comment: Fasting reference interval For someone without known diabetes, a glucose value >125 mg/dL indicates that they may have diabetes and this should be confirmed with a follow-up test. BUN 6(L) 7 - 25 mg/dL [facility] CREATININE 0.77 0.50 - 0.99 mg/dL [facility] GFR 98 > OR = 60 mL/min/1.7 3m2 [facility] BUN/CREAT RATIO 8 6 - 22 (calc) [facility] SODIUM 137 135 - 146 mmol/L [facility] POTASSIUM 3.5 3.5 - 5.3 mmol/L [facility] CHLORIDE 99 98 - 110 mmol/L [facility] CO2 28 20 - 32 mmol/L [facility] CALCIUM 9.7 8.6 - 10.2 mg/dL [facility] TOTAL PROTEIN 7.1 6.1 - 8.1 g/dL [facility] ALBUMIN 4.2 3.6 - 5.1 g/dL [facility] GLOBULIN 2.9 1.9 - 3.7 g/dL (calc) [facility] ALBUMIN/GLOBULIN RATIO 1.4 1.0 - 2.5 (calc) [facility] BILIRUBIN TOTAL 0.3 0.2 - 1.2 mg/dL [facility] ALKALINE PHOSPHATASE 165(H) 31 - 125 U/L [facility] AST 16 10 - 30 U/L [facility] ALT 14 6 - 29 U/L [facility] Comment: Test Performed at: [facility] [address] [place] [address] Bryan Pace MD Blood 04/11/2025 1:41 PM CDT 04/12/2025 3:17 AM CDT Davie Ramirez MD CHEMISTRY ORDERABLES Final Resul t [facility] [phone] [facility] [address] [address] [place] [phone] * CERV/VAG CYTOPATH, THIN PREP (06/07/2014 12:00 AM WOOD MILLER) us Sgf Scanning PATHOLOGY/CYTOLOGY ORDERABLES Fi nal Result from Last 3 Months or Most Recently Relevant to Health Maintenance Insurance [place] [address] DUAL COMPLETE PPO DSNP [facility] [address] MEDICAID [place] Advance Directives For more information, please contact: [phone] Documents on File Type Date Recorded Patient Admiralty Lawyer Expl anation Advance Directive POA 05/28/2017 3:49 PM Advance Directive POA Care Teams Monumental Stonemason Relationship Specialty Start Date End Date Tammie Flores MD [address] [place] [address] PCP - General Family Practice 11/03/23
[2025-06-12 16:36] LABS: Hematocrit 46.8 % (36-47); Hemoglobin 15.90 g/dL (11.27-16.99); Mean Corpuscular HGB Conc 34.0 g/dL (30-55); Mean Corpuscular Hemoglobin 28.8 pg (27-33); Mean Corpuscular Volume 84.6 fl (85-98); Nucleated Red Blood Cells % 0 %; Platelet Count 241 10^3/cmm (157-399); Red Blood Count 5.53 10^6/uL (3.85-5.65); White Blood Count 11.58 10^3/uL (3.29-11.43)
[2025-06-12 16:54] LABS: Alanine Aminotransferase 24 U/L (0-33); Albumin Level 3.9 g/dL (3.5-5.2); Alkaline Phosphatase 184 U/L (35-105); Anion Gap 14.2 (5-19); Aspartate Amino Transferase 21 U/L (0-32); Blood Urea Nitrogen 7 mg/dL (6-20); Calcium 9.4 mg/dL (8.5-10.5); Carbon Dioxide 24 mmol/L (22-29); Chloride 100 mmol/L (98-107); Globulin 3.2 g/dL (1.3-4.6); Glucose 104 mg/dL (65-115); Osmolality Calculated 276 mOsm/kg (285-295); Potassium 4.2 mmol/L (3.5-5.1); Sodium 134 mmol/L (136-145); Total Protein 7.1 g/dL (6.6-8.7)
[2025-06-12 16:55] LABS: Acetaminophen < 5.0 ug/mL (10-30); Salicylate < 0.3 mg/dL (3-10)
--- NOTE | 2025-06-12 16:55 | PC.PHAR ---
Patient first stated she wasn't taking anything. When I told her I had a list and fill dates she then verified them with me . Patient states she isn't sure when she took them last .
--- NOTE | 2025-06-12 17:04 | PC.NURSE ---
Pt was read her 96 hour hold rights at this time with security present.
[2025-06-12 17:50] VITALS: BP 149/103; PULSE 99; O2SAT 97
[2025-06-12 17:56] VITALS: BP 172/107; PULSE 76; RESP 16; TEMP 36.6; O2SAT 99
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
--- NOTE | 2025-06-12 18:40 | PC.NURSE ---
Pt. also stated she had not taken a shower in 4 months or more.
[2025-06-12 20:43] VITALS: BP 182/99; PULSE 108; RESP 18; TEMP 36.7; O2SAT 99
[2025-06-13 06:00] VITALS: BP 138/76; PULSE 83; RESP 17; TEMP 36.7; O2SAT 97
[2025-06-13] MEDS: haloperidol inj 5 mg/mL INJ 1 mL IM ×2 (08:21→22:48)
[2025-06-13] MEDS: diphenhydrAMINE 50 mg/mL SDV 1mL IM ×2 (08:21→22:48)
[2025-06-13] MEDS: LORazepam 2 mg/mL INJ 1 mL IM ×2 (08:21→22:48)
--- NOTE | 2025-06-13 08:23 | PC.NURSE ---
Code 10 Staff was changing bed linens and pt. got extremely irate. At first pt. threw her pillows, staff called security, but signee called a code 10 when pt. threw her mattress out into the galvan, then her wooden bed causing it brake the screws to all fall out of the bed and a hole to be put into the hallway wall. Pt. tore the hand byproduct engineer off of the wall and threw it at staff into the galvan way. Pt. was given a B-52 and moved to room 170. Pt. was cooperative with the medication injections. A second code 10 was called d/t minimal staff response.
--- NOTE | 2025-06-13 08:58 | PC.OT ---
OT EVALUATION HELD THIS A.M. DUE TO PATIENT HAVING A CODE 10 CALLED THIS MORNING AND MOVED TO ROOM 170 AND RECEIVING MEDICATION. WILL ATTEMPT AT A LATER TIME.
--- NOTE | 2025-06-13 09:42 | PC.NURSE ---
medications reconciled.
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
[2025-06-13 14:00] VITALS: RESP 18
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
--- NOTE | 2025-06-13 16:49 | PC.NURSE ---
Pt. refused all meals today.
--- NOTE | 2025-06-13 18:23 | PC.NURSE ---
Dr. Heart gave verbal order for Invega 3mg PO QD.
--- NOTE | 2025-06-13 20:26 | PC.NURSE ---
vs not collected per charge resp 18
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
--- NOTE | 2025-06-13 22:58 | PC.NURSE ---
Nursing staff heard a loud noise coming from 170. After staff looked at the camera Pt. was throwing items at the window. A code 10 was called at 2237. After staff got into the room she stopped throwing items and stood still. Pt. stated Are you guys going to take me to senior living now? Jeannette MONTELONGO said that this isn't going to get her to senior living. Pt. states At the last facility she got taken to snf and then to senior living after doing this After Jeannette MONTELONGO verbally deescalated the pt. states she wants to be in a seclusion room like the senior living. She agreed to take a B52 and go into the seclusion room. She was asked if you would like anything to eat before you go into seclusion. Pt. states I'll let you know before it gets to the point of putting a tube down my throat and an IV in my arm. Pt. received a B52 and then was escorted to the seclusion room. Pt. asked if it's fine if she shits on the floor She was informed that she should let someone know and she will be escorted to a bathroom when she needs it.
--- NOTE | 2025-06-14 01:00 | PC.NURSE ---
CODE 10 At approximately 2237 nursing staff heard a loud noise coming from room 170. A code 10 was called at this time. This nurse, Armaan COWAN, Foster Salas and Mickie BHAKTA walked down to pts room and observed her throw the soap dispenser at the window. Foster Salas asked the pt to stop and pt proceeded to stand still and stare at the floor. Once more nursing staff arrived to the unit this nurse went to draw up medications. Once this nurse arrived back [facility] to verbally deescalate the pt. HS asked pt if she would take the medications and the pt replied i think ill do it the hard way this time. Pt then proceeded to say that she wants to go back to jail but she doesn't want to hurt anyone. Pt also stated that if we would put her into seclusion she would be fine. It was then determined that the pt feels safer and more comfortable while in seclusion. At 2248 the pt agreed to take IM medications. 50 mg Benadryl IM was given in pts right deltoid, and Ativan 2mg/ Haldol 5mg Im was given in pts left deltoid. At this time VS were obtained HR- 93, BP- 175/119, RR- 18, O2- 96%. This nurse notified DR Heart at 2248 and informed him that the pt is requesting to go into Seclusion. Dr. Heart okayed pt going into seclusion but ordered that we open the door once the pt falls asleep. The pt was asked if she wanted anything to eat or drink before she goes into seclusion and she declined. assisted the pt into seclusion and the pt was informed that we still needed to lay eyes on her while she is in her and that if she needs anything to let the sitter know. The pt then asked if it is okay that she shits on the floor. Nursing staff informed her that if she needs to use the restroom, we will let her out to use the restroom. Pt remained in seclusion for 1 hour and 42 minutes and was released at 0033. Pt is now observed laying on the mattress in the seclusion room with the door open. Behavioral monitoring continues.
--- NOTE | 2025-06-14 02:03 | PC.NURSE ---
MEDICATION REFUSAL At approximately [address] Heart and asked him what he would like us to do about the pts [address] Heart stated that we should not wake the pt up for medications and that we should let her wake up on her own. Physician also stated that if pt wakes up before 0400 we were allowed to attempt to give her her 2100 medications. At 2100 this nurse, and Armaan CWOAN attempted to give pt her 2100 medications, offer her a snack and attempted to get her vitals. Armaan COWAN knocked on the pts door and offered meds and snacks and pt refused stating I dont need those. After this, this nurse contacted Dr. Heart again to inform him that pt had refused her medications and that we would try again at a later time. Physician okayed.
--- NOTE | 2025-06-14 06:48 | PC.NURSE ---
vs not collected per charge resp 18
--- NOTE | 2025-06-14 09:04 | PC.NURSE ---
Pt. was sleeping in the seclusion room with light off, and pt. had made a statement on the prior shift that she was going take a shit on the floor . Signee and another nurse was watching pt. in the camera. Pt. moved her mattress to the other side of the room, then squatted, pulled her pants down and urinated on the floor. Signee called a code 10 as the pt. pulled her pants down. Security had actually walked into the NPU as the code 10 was called. Signee informed pt. there was two toilets, one in her room and one in the galvan way. Pt. said she needed a drain on the floor and when asked to leave the seclusion room pt. stated there was nothing wrong with the room that it wasn't shit. Pt. got urine on her socks and lower pants. Staff got pt. clean scrubs and socks and pt. did put them on and go to her room in 170 without incident. Signee asked pt. if she needed a depends and pt. declined. After the area was cleaned staff was watching pt. on the camera and saw pt. come out of the bathroom in her room. Pt. then laid down on the bed in 170 and is currently laying down.
--- NOTE | 2025-06-14 09:13 | PC.NURSE ---
Pt. refused physical assessment and V/S. Signee filled out assessment as best could.
[2025-06-14] MEDS: LORazepam 2 mg/mL INJ 1 mL IM ×2 (09:32→12:04)
[2025-06-14] MEDS: haloperidol inj 5 mg/mL INJ 1 mL IM ×2 (09:32→12:03)
[2025-06-14] MEDS: diphenhydrAMINE 50 mg/mL SDV 1mL IM (09:32)
--- NOTE | 2025-06-14 09:36 | PC.NURSE ---
Pt. took her sock and her scrub top and flushed them down the toilet causing the toilet to become overflowed. A code 10 was called, B-52 inj given. Pt. then got naked, put her dirty pads underneath the door to seclusion. Pt. took inj willingly. Public Area Supervisor informed, informed.
--- NOTE | 2025-06-14 11:07 | PC.NURSE ---
Dr. Heart requested nursing call the [facility] clinic patient normally sees and determining what watermelon harvesting supervisor injectables she has had in the past. I called and spoke with PEPPER Blair that sees patient routinely and she reviewed [facility] records and states that patient has never received injectables while under the care of [facility], both prior to and after longterm. I relayed this information to nursing and Dr. Heart.
--- NOTE | 2025-06-14 11:40 | PC.NURSE ---
After team meeting this am the plan is to give pt. a long acting injectable medication and DC pt. to her guardian on Thursday. Flora Wei MUSKRAT TRAPPER was contacted about if pt. has ever been on a long acting inj before and to MUSKRAT TRAPPER's knowledge pt. has not.
--- NOTE | 2025-06-14 11:54 | PC.NURSE ---
Pt. started ripping a lot of her hair out of her head. Staff asked her to stop she continued. Another code 10 was called and pt. was placed on the restraint bed. Several staff members currently with pt.
--- NOTE | 2025-06-14 12:04 | PC.NURSE ---
Dr. Heart gave verbal order to give Ativan 2mg IM now, and Haldol 5mg IM now.
--- NOTE | 2025-06-14 12:19 | PC.NURSE ---
Dr. Heart gave verbal order for Geodon 20mg IM now.
[2025-06-14 12:21] VITALS: BP 181/131; PULSE 110; RESP 20; O2SAT 98
[2025-06-14 12:38] VITALS: BP 135/88; PULSE 97; RESP 20; TEMP 36.8
[2025-06-14 13:10] VITALS: BP 137/93; PULSE 108; RESP 18; TEMP 36.8
--- NOTE | 2025-06-14 13:13 | P.NPUPN_ITS ---
Subjective NPU 2 Subjective: Patient presents today having had multiple seclusions and restraints and as needed medications this morning as she refuses to participate in treatment, refuses to take medication and reports that she just wants to go to senior care. We will need to talk to the guardian about patient's resistance to treatment and figuring out how to manage this institutionalized behavior as she continues to identify that she had been in senior care for about 20 years and just wants to return she does not want to continue functioning in the external society. We discussed that if she is not willing to engage in treatment we may need to send her to her guardian/mom and allow her to try to figure out if either a there is a way to get her into some kind of legal program or go to [facility] in [place] or something. Mental Status Exam 2 MSE Comments: This is a morbidly obese white female in hospital scrubs with poor grooming and eye contact with bright multicolored hair. No abnormal movements except for some significant psychomotor agitation. Uncooperative with exam in moderate to extreme distress. Speech was limited but decreased rate and volume. Mood described as I do not want to be here, affect activated and irritable. Thought process linear. Thought content: Patient denied suicidal or homicidal ideation, no delusions reported but she appeared to be paranoid maybe had persecutory delusions, she denied auditory or visual hallucinations. Attention and concentration were limited and memory appeared unreliable but none were formally tested. She is alert and oriented times person and place. Insight, judgment and impulse control are impaired. Vitals/I&O/Wt Last Vital Signs Temp 98.2 F 06/14/25 13:10 Pulse 108 H 06/14/25 13:10 Resp 18 06/14/25 13:10 BP 137/93 06/14/25 13:10 Pulse Ox 98 06/14/25 12:21 O2 Del Method Room Air 06/14/25 13:10 Weight last 48 hrs Weight 133.81 kg Data NPU 06/12/25 16:28 06/12/25 16:28 A&P Assessment and plan 1. Schizoaffective disorder, bipolar type: 2. Borderline personality disorder: 3. Chronic post-traumatic stress disorder: 4. Suicidal ideation: Plan: This is a 44-year-old white female with a history of PTSD, schizoaffective disorder, borderline personality disorder and aggression who presented with suicidal ideation currently having been consistent with her outpatient services. 1. Continue current medication. Initiated Invega 3 mg p.o. daily. But patient refusing medications in general. 2. Encourage individual, group and milieu therapy. 3. Initiate every 15 minute checks for safety. 4. Obtain collateral information. 5. Observe against the backdrop of the 96-hour hold. Identified the patient has a guardian so hold will be rescinded. Patient with multiple seclusions and not interested in treatment. We will likely initiate medication likely long-acting injectable to assist with her functioning but given her aggressiveness and unwillingness to participate and a desire expressed that she wants to go back to senior care. Will talk to the guardian about getting a long-acting injectable initiated and then allowing her to come home and manage this situation. 6. Will explore whether or not there are any addiction issues and encourage sober living treatment after discharge at the highest level care to which she is willing to commit if so. PDMP PDMP Reviewed: Not Reviewed Involuntary Hold Information 2 Hold Status: Legal Status: 96 Hour Hold Date/Time Hold Expires: 1 08/17/24@1645 Guardian Attestations NPU 2 Medical Necessity Statement*: Inpatient hospitalization is medically necessary and the clinically appropriate intervention at this time. We will monitor/initiate medications and make changes as indicated. Likely length of stay 1-3 days. Coding Level of Care Code Acute Code for [facility] Fwd Diagnoses Schizoaffective disorder, bipolar type F25.0 Borderline personality disorder F60.3 Chronic post-traumatic stress disorder F43.12 Suicidal ideation R45.856
--- NOTE | 2025-06-14 13:39 | PC.NURSE ---
released Left arm at 1135.
[2025-06-14 13:40] VITALS: BP 139/90; PULSE 88; RESP 18; O2SAT 98
[2025-06-14 14:00] VITALS: BP 139/90; PULSE 89; RESP 18; O2SAT 98
--- NOTE | 2025-06-14 14:11 | PC.NURSE ---
left wrist and left leg released. Pt. is sleeping on the restraining bed with security present.
--- NOTE | 2025-06-14 18:14 | PC.NURSE ---
Dr. Heart gave the verbal order to give Thorazine 4ml IM TID X 21 days. Medication to be called into [facility]. Lucy-Yuko will order a case of [address] vials[address] [facility] currently closed. Signee will pass on to oncoming nurse to call [facility] in the am to order to medication.
--- NOTE | 2025-06-14 20:09 | PC.NURSE ---
vs not collected per rn resp 16
--- NOTE | 2025-06-15 06:31 | PC.NURSE ---
vs not collected resp 16 charge notified
--- NOTE | 2025-06-15 09:22 | PC.OT ---
OT EVALUATION FOR GROUP CONTINUES TO BE HELD DUE TO PATIENT AGITATION.
--- NOTE | 2025-06-15 12:01 | P.NPUPN_ITS ---
Subjective NPU 2 Subjective: Patient presents today having had multiple seclusions and restraints and as needed medications again as she refuses to participate in treatment, refuses to take medication and reports that she just wants to go to shelter still. We spoke to the guardian about patient's resistance to treatment and she reports that Thorazine has helped in the past. He will wait the Thorazine and I am version given her continued resistance to taking the medication or any medication orally. She spent much of the time not in seclusion but in the seclusion room refusing to put close on. She did drape her cell for that she so that she was not naked and exposed. Mental Status Exam 2 MSE Comments: This is a morbidly obese white female in hospital scrubs with poor grooming and eye contact with bright multicolored hair. No abnormal movements except for some significant psychomotor agitation. Uncooperative with exam in moderate to extreme distress. Speech was limited but decreased rate and volume. Mood described as I do not want to be here, affect activated and irritable. Thought process linear. Thought content: Patient denied suicidal or homicidal ideation, no delusions reported but she appeared to be paranoid maybe had persecutory delusions, she denied auditory or visual hallucinations. Attention and concentration were limited and memory appeared unreliable but none were formally tested. She is alert and oriented times person and place. Insight, judgment and impulse control are impaired. Vitals/I&O/Wt Last Vital Signs Temp 98.2 F 06/14/25 13:10 Pulse 89 06/14/25 14:00 Resp 18 06/14/25 14:00 BP 139/90 06/14/25 14:00 Pulse Ox 98 06/14/25 14:00 O2 Del Method Room Air 06/14/25 14:00 Data NPU 06/12/25 16:28 06/12/25 16:28 A&P Assessment and plan 1. Schizoaffective disorder, bipolar type: 2. Borderline personality disorder: 3. Chronic post-traumatic stress disorder: 4. Suicidal ideation: Plan: This is a 44-year-old white female with a history of PTSD, schizoaffective disorder, borderline personality disorder and aggression who presented with suicidal ideation currently having been consistent with her outpatient services. 1. Continue current medication. Discontinue Invega officially. Started Thorazine 25 mg p.o. 3 times daily and ordered Thorazine injectable for forced medication with guardian's permission and will await that to start the Thorazine and titrate to effect. 2. Encourage individual, group and milieu therapy. 3. Initiate every 15 minute checks for safety. 4. Obtain collateral information. 5. Observe against the backdrop of the 96-hour hold. Identified the patient has a guardian so hold will be rescinded. Patient with multiple seclusions and not interested in treatment. We will likely initiate medication likely long-acting injectable to assist with her functioning but given her aggressiveness and unwillingness to participate and a desire expressed that she wants to go back to shelter. Will talk to the guardian about getting a long-acting injectable initiated and then allowing her to come home and manage this situation. 6. Will explore whether or not there are any addiction issues and encourage sober living treatment after discharge at the highest level care to which she is willing to commit if so. PDMP PDMP Reviewed: Not Reviewed Involuntary Hold Information 2 Hold Status: Legal Status: 96 Hour Hold Date/Time Hold Expires: 1 08/17/24@1645 Guardian Attestations NPU 2 Medical Necessity Statement*: Inpatient hospitalization is medically necessary and the clinically appropriate intervention at this time. We will monitor/initiate medications and make changes as indicated. Likely length of stay 3-5 days. Coding Level of Care Code Acute Code for g Fwd Diagnoses Schizoaffective disorder, bipolar type F25.0 Borderline personality disorder F60.3 Chronic post-traumatic stress disorder F43.12 Suicidal ideation R45.857
--- NOTE | 2025-06-15 12:27 | PC.NURSE ---
pt was offered a sandwich, chips, and a glass a water, staff sat these items near her. pt then threw the items in the door way.
[2025-06-15 14:00] VITALS: RESP 18
[2025-06-15] MEDS: water for injection-sterile 10 ML (18:03)
[2025-06-15] MEDS: LORazepam 2 mg/mL INJ 1 mL IM (18:03)
--- NOTE | 2025-06-15 18:09 | PC.NURSE ---
Pt was observed on camera by sitter getting up. Staff helped pt to the bathroom and noticed that the pt had been scratching her forearms / forehead and side of nose. The pt was visibly bleeding. The staff helped pt back to the seclusion room and helped her sit on the mattress. This nurse sherita up IM 20mg Geodon and IM 2mg Ativan per Dr. Heart orders. The pt took the shots willingly and allowed staff to clean the blood / cuts. Pt was then helped to lay in bed. The seclusion door is open / lights on / and sitter observing pt from camera in nurses station. janitor supervisor / medical assistant supervisor / Dr. Heart notified.
[2025-06-15] MEDS: divalproex DR 500 mg Tablet 1500 MG PO (20:49)
--- NOTE | 2025-06-15 21:21 | PC.NURSE ---
vs not collected resp 18
[2025-06-15 22:15] VITALS: PULSE 102; RESP 18
--- NOTE | 2025-06-15 22:16 | PC.NURSE ---
Taken manually sitting, right radial.
[2025-06-16 06:00] VITALS: BP 107/73; PULSE 123; RESP 18; TEMP 36.6; O2SAT 98
--- NOTE | 2025-06-16 11:12 | PC.OT ---
Hold OT evaluation due to security not being present. Will attempt again at a later time.
--- NOTE | 2025-06-16 12:44 | P.NPUPN_ITS ---
Subjective NPU 2 Subjective: Patient presents today continuing to be mostly uncooperative with exam. She did however put some close on at some point today per staff reports. She continued to be under the blankets so this typewriter mechanic could not see that she had gotten dressed. And yesterday evening she did agree after our conversation to start taking some Thorazine per staff reports and they also reported that she was being a little more adherent with medication. She mostly did head nods which were challenging to appreciate under the blanket and she did make some vocalization to allow this typewriter mechanic to know that she was understanding what I was reporting. She denied any issues with the medication. Mental Status Exam 2 MSE Comments: This is a morbidly obese white female in hospital scrubs with poor grooming and eye contact with bright multicolored hair. No abnormal movements except for some significant psychomotor agitation. Uncooperative with exam in moderate to extreme distress. Speech was limited but decreased rate and volume. Mood described as I do not want to be here, affect activated and irritable. Thought process linear. Thought content: Patient denied suicidal or homicidal ideation, no delusions reported but she appeared to be paranoid maybe had persecutory delusions, she denied auditory or visual hallucinations. Attention and concentration were limited and memory appeared unreliable but none were formally tested. She is alert and oriented times person and place. Insight, judgment and impulse control are impaired. Vitals/I&O/Wt Last Vital Signs Temp 97.8 F 06/16/25 06:00 Pulse 123 H 06/16/25 06:00 Resp 18 06/16/25 06:00 BP 107/73 06/16/25 06:00 Pulse Ox 98 06/16/25 06:00 O2 Del Method Room Air 06/16/25 06:00 06/15/25 06/16/25 06/16/25 22:59 06:59 14:59 Intake Total Balance Data NPU 06/12/25 16:28 06/12/25 16:28 A&P Assessment and plan 1. Schizoaffective disorder, bipolar type: 2. Borderline personality disorder: 3. Chronic post-traumatic stress disorder: 4. Suicidal ideation: Plan: This is a 44-year-old white female with a history of PTSD, schizoaffective disorder, borderline personality disorder and aggression who presented with suicidal ideation currently having been consistent with her outpatient services. 1. Continue current medication. Discontinue Invega officially. Started Thorazine 25 mg p.o. 3 times daily and ordered Thorazine injectable for forced medication with guardian's permission and will await that to start the Thorazine and titrate to effect. 2. Encourage individual, group and milieu therapy. 3. Initiate every 15 minute checks for safety. 4. Obtain collateral information. 5. Observe against the backdrop of the 96-hour hold. Identified the patient has a guardian so hold will be rescinded. Patient with multiple seclusions and not interested in treatment. We will likely initiate medication likely long-acting injectable to assist with her functioning but given her aggressiveness and unwillingness to participate and a desire expressed that she wants to go back to retirement. Will talk to the guardian about getting a long-acting injectable initiated and then allowing her to come home and manage this situation. 6. Will explore whether or not there are any addiction issues and encourage sober living treatment after discharge at the highest level care to which she is willing to commit if so. PDMP PDMP Reviewed: Not Reviewed Involuntary Hold Information 2 Hold Status: Legal Status: 96 Hour Hold Date/Time Hold Expires: 1 08/17/24@1645 Guardian Attestations NPU 2 Medical Necessity Statement*: Inpatient hospitalization is medically necessary and the clinically appropriate intervention at this time. We will monitor/initiate medications and make changes as indicated. Likely length of stay 3-5 days. Coding Level of Care Code Acute Code for [facility] Fwd Diagnoses Schizoaffective disorder, bipolar type F25.0 Borderline personality disorder F60.3 Chronic post-traumatic stress disorder F43.12 Suicidal ideation R45.85
[2025-06-16 13:24] VITALS: BP 104/58; PULSE 120
--- NOTE | 2025-06-16 14:46 | XR_ITS ---
WS: [id number] Exam: XR chest 1V portable [id number] Date/Time of Exam: 06/16/2025 3:18 PM Reason For Exam: SOB cough Comparison 03/28/2014. Lungs are clear and fully inflated. Normal cardiomediastinal silhouette. Bony structures are intact. XR/XR chest 1V portable [id number] IMPRESSION: 1. Negative chest.
--- NOTE | 2025-06-16 14:51 | ECG_ITS ---
[facility]: [facility] Pat Name: Eliza Hayden Department: Room: 170 Gender: Female Print Finisher: : 1980 Requested By: Moris Heart Order Number: [id number] Odalys MD: Keke Arora M.D. Measurements Intervals Fine Rate: 97 P: 70 MS: 136 QRS: 70 QRSD: 90 T: 54 QT: 380 QTc: 483 Interpretive Statements SINUS RHYTHM NONSPECIFIC T-WAVE ABNORMALITY Compared to ECG 03/09/2017 18:53:33 No significant changes Electronically Signed On 06-16-2025 18:48:37 INDUSTRIAL ENGINEERING by Keke Arora M.D. [id number]
[2025-06-16] MEDS: divalproex DR 500 mg Tablet 1500 MG PO (21:43)
[2025-06-16 22:00] VITALS: BP 150/60; PULSE 102; RESP 17; TEMP 36.4; O2SAT 97
[2025-06-17 06:00] VITALS: BP 104/63; PULSE 107; RESP 18; TEMP 36.2; O2SAT 97
[2025-06-17 07:55] VITALS: BP 103/68; PULSE 113; RESP 17; TEMP 36.4; O2SAT 96
[2025-06-17] MEDS: neomycin-poly-bacitracin oint 28 gm 1 APPLIC TOPICAL ×2 (12:49→18:51)
--- NOTE | 2025-06-17 12:51 | P.NPUPN_ITS ---
Subjective NPU 2 Subjective: Patient presented today reporting that she is doing all right. She has been taking the Thorazine as prescribed and currently not needing the injections thus far. Staff reporting significant improvement in her interactions and irritability. We had agreed that we would not change anything and keep monitoring as she was going but she had gone into the shower per staff reports and when they checked on her she was having some altered mental status and so a rapid response was called. Mental Status Exam 2 MSE Comments: This is a morbidly obese white female in hospital scrubs with poor grooming and eye contact with bright multicolored hair. No abnormal movements except for some significant psychomotor agitation. Uncooperative with exam in moderate to extreme distress. Speech was limited but decreased rate and volume. Mood described as I do not want to be here, affect activated and irritable. Thought process linear. Thought content: Patient denied suicidal or homicidal ideation, no delusions reported but she appeared to be paranoid maybe had persecutory delusions, she denied auditory or visual hallucinations. Attention and concentration were limited and memory appeared unreliable but none were formally tested. She is alert and oriented times person and place. Insight, judgment and impulse control are impaired. Vitals/I&O/Wt Last Vital Signs Temp 97.5 F L 06/17/25 07:55 Pulse 113 H 06/17/25 07:55 Resp 17 06/17/25 07:55 BP 103/68 06/17/25 07:55 Pulse Ox 96 06/17/25 07:55 O2 Del Method Room Air 06/17/25 07:55 06/16/25 06/17/25 06/17/25 22:59 06:59 14:59 Intake Total 240 / 240 Balance 240 / 240 Data NPU 06/17/25 13:55 06/18/25 02:14 A&P Assessment and plan 1. Schizoaffective disorder, bipolar type: 2. Borderline personality disorder: 3. Chronic post-traumatic stress disorder: 4. Suicidal ideation: Plan: This is a 44-year-old white female with a history of PTSD, schizoaffective disorder, borderline personality disorder and aggression who presented with suicidal ideation currently having been consistent with her outpatient services. 1. Continue current medication. Discontinue Invega officially. Started Thorazine 25 mg p.o. 3 times daily and ordered Thorazine injectable for forced medication with guardian's permission and will await that to start the Thorazine and titrate to effect. 2. Encourage individual, group and milieu therapy. 3. Initiate every 15 minute checks for safety. 4. Obtain collateral information. 5. Observe against the backdrop of the 96-hour hold. Identified the patient has a guardian so hold will be rescinded. Patient with multiple seclusions and not interested in treatment. We will likely initiate medication likely long-acting injectable to assist with her functioning but given her aggressiveness and unwillingness to participate and a desire expressed that she wants to go back to [facility]. Will talk to the guardian about getting a long-acting injectable initiated and then allowing her to come home and manage this situation. 6. Will explore whether or not there are any addiction issues and encourage sober living treatment after discharge at the highest level care to which she is willing to commit if so. 7. Agree with transfer to [facility] and appreciate hospitalist involvement. Patient with rapid response called secondary to altered mental status. We will continue to follow along [facility]. PDMP PDMP Reviewed: Not Reviewed Involuntary Hold Information 2 Hold Status: Legal Status: 96 Hour Hold Date/Time Hold Expires: 1 08/17/24@1645 Guardian Attestations NPU 2 Medical Necessity Statement*: Inpatient hospitalization is medically necessary and the clinically appropriate intervention at this time. We will monitor/initiate medications and make changes as indicated. Likely length of stay 3-5 days. Coding Level of Care Code Acute Code for [facility] Fwd Diagnoses Schizoaffective disorder, bipolar type F25.0 Borderline personality disorder F60.3 Chronic post-traumatic stress disorder F43.12 Suicidal ideation R45.854
--- NOTE | 2025-06-17 13:47 | ECG_ITS ---
[facility] Date: 2025-06-17 Pat Name: Eliza Hayden Department: Room: 112 Gender: Female Supervisor Hospitality House: : 1980 Requested By: Leonardo Ramirez Order Number: [id number] Reading MD: LORIE AYALA Measurements Intervals [place] Rate: 80 P: 61 UT: 140 QRS: 61 QRSD: 97 T: 50 QT: 372 QTc: 432 Interpretive Statements SINUS RHYTHM NONSPECIFIC T-WAVE ABNORMALITY Compared to ECG 06/16/2025 14:51:14 No significant changes Electronically Signed On 06-17-2025 18:39:42 CASE COORDINATOR by LORIE AYALA [id number]
--- NOTE | 2025-06-17 13:49 | XRR_ITS ---
PROCEDURE INFORMATION: Exam: XR Chest Exam date and time: 06/17/2025 3:06 PM Age: 44 years old Clinical indication: Shortness of breath; Additional info: Hypotension; Difficulty breathing TECHNIQUE: Imaging protocol: Radiologic exam of the chest. Views: 1 view. COMPARISON: CR XR chest 1V portable [id number] 06/16/2025 4:26 PM FINDINGS: Lungs: Unremarkable. No consolidation. Pleural spaces: Unremarkable. No pleural effusion. No pneumothorax. Heart/Mediastinum: Unremarkable. No cardiomegaly. Bones/joints: There are moderate degenerative changes of the bony structures. XR/XR chest 1V portable [id number] IMPRESSION: No acute abnormality identified.
[2025-06-17 13:59] LABS: Hematocrit 39.9 % (36-47); Hemoglobin 14.10 g/dL (11.27-16.99); Mean Corpuscular HGB Conc 35.3 g/dL (30-55); Mean Corpuscular Hemoglobin 28.5 pg (27-33); Mean Corpuscular Volume 80.8 fl (85-98); Nucleated Red Blood Cells % 0 %; Platelet Count 206 10^3/cmm (157-399); Red Blood Count 4.94 10^6/uL (3.85-5.65); White Blood Count 6.86 10^3/uL (3.29-11.43)
--- NOTE | 2025-06-17 14:02 | PC.NURSE ---
Patients mother was notified of patient transfer to [facility] 112. All questions answered.
[2025-06-17 14:15] VITALS: BP 114/60; PULSE 83; RESP 20; O2SAT 96
--- NOTE | 2025-06-17 14:19 | PC.NURSE ---
patient received from NPU after rapid response. BP was low in NPU. Patient has 1L bolus NS running started by FELTON Medrano. Dr Amato into see patient. Will begin NS at 125ml/hr when bolus complete. Patient resting with eyes closed. Arousable to verbal response presently. Patient will transfer to ICU 5 when bed available.
[2025-06-17 14:25] LABS: ABG PCO2 38.8 mmHg (35-45); ABG PH Result 7.41 (7.35-7.45); Arterial Blood Gas Hematocrit 42.7 % (37-47); Blood Gas Allen Test Pos; Blood Gas Operator Identificat CAK; Blood Gas Sample Site Radial, left; Blood Gas Sample Type Arterial; HCO3 ABG 24.4 mmol/L (22-26); PO2 ABG 64.7 mmHg (80.0-100.0); PO2 FiO2 Ratio Arterial Blood 308
[2025-06-17 14:30] VITALS: BP 101/59; PULSE 83; RESP 19; O2SAT 93
--- NOTE | 2025-06-17 15:01 | PC.NURSE ---
Received OK from Marcela Casillas RN to allow patient's mother to visit due to patient's change of condition.
--- NOTE | 2025-06-17 15:07 | PM.CONSULT ---
Providers/Reason For Consult Consulting Physician/Specialty*: Leonardo Amato MD, MPH Reason for Consult*: Low blood pressure with associated lethargy Requesting Physician: Dr. Heart Attending Physician: Moris Heart MD Primary Care Provider: Tammie Flores MD History of Present Illness History of Present Illness Eliza Hayden is a 44 year old female who was admitted during the week (4 days ago) because of apparent uxyld-ar-aarlehb psychosis. She was put on some Thorazine, as well as Cogentin. She also gets lisinopril 10 mg daily for HTN, which was resumed. The psychosis was able to be controlled in the last 1 to 2 days. However, since today, she has been having increased lethargy, and worsening dizziness. She actually had an episode of fall once today, and was reported to have been finding it difficult to get up from the bathroom. Upon evaluation by the nursing team, her blood pressure was noted to be in the 80s/40s. Rapid response was therefore called. Patient was noted yesterday to be tachycardia, with heart rate in the 120s yesterday. Evaluation of this was negative. Then, she also complained difficulty breathing. Her, IV fluid 1000 cc bolus was started. She was therefore transferred to the CSU for further evaluation. Patient was unable to give much information, as she was only able to answer very few questions, given her concomitant lethargy. Review of Systems Narrative: Unable to obtain because of patient's altered mental status. Medications/Allergies Home Medications ?Medication ?Instructions ?Recorded ?Confirmed ?Last Taken ?Type albuterol sulfate 90 mcg/actuation 2 puff inhalation QID PRN 10/30/22 06/12/25 Unknown History aerosol inhaler Shortness Of Breath Or Wheezing levothyroxine 112 mcg capsule 112 mcg PO DAILY 10/30/22 06/12/25 Unknown History tiotropium bromide 18 mcg capsule 1 cap inhalation DAILY 05/12/24 06/12/25 Unknown History with inhalation device (Spiriva with HandiHaler) aspirin 325 mg tablet 325 mg PO DAILY 11/03/24 06/12/25 Unknown History lisinopril 10 mg tablet 10 mg PO DAILY 11/03/24 06/12/25 Unknown History benztropine 2 mg tablet 2 mg PO BEDTIME #30 tabs 05/10/25 06/12/25 Unknown Rx buspirone 15 mg tablet 45 mg (3 x 15 mg) PO BEDTIME #90 05/10/25 06/12/25 Unknown Rx tabs divalproex 500 mg tablet,delayed 1,500 mg (3 x 500 mg) PO BEDTIME 05/10/25 06/12/25 Unknown Rx release (Depakote) #90 tabs duloxetine 60 mg capsule,delayed 60 mg PO .daily in AM #30 caps 05/10/25 06/12/25 Unknown Rx release haloperidol 5 mg tablet 25 mg (5 x 5 mg) PO BEDTIME #150 05/10/25 06/12/25 Unknown Rx tabs prazosin 5 mg capsule 5 mg PO BEDTIME #30 caps 05/10/25 06/12/25 Unknown Rx trazodone 100 mg tablet 50 - 100 mg (0.5 - 1 x 100 mg) PO 05/10/25 06/12/25 Unknown Rx DAILY #30 tabs folic acid 1 mg tablet 1 mg PO DAILY 06/12/25 06/12/25 Unknown History Allergies Allergy/AdvReac Type Severity Reaction Status Date / Time bupropion (From Wellbutrin) Allergy Mild Tremors Verified 05/10/25 12:09 fluoxetine (From Prozac) Allergy Mild ADR-Nausea Verified 05/10/25 12:09 alprazolam (From Xanax) Allergy nausea Verified 05/10/25 12:09 Current Medications Generic Name Dose Route Start Last Admin Trade Name Freq PRN Reason Stop Dose Admin Acetaminophen 650 mg 06/12/25 17:56 06/17/25 12:48 Acetaminophen 325 Mg Tablet PO 650 mg Q4H PRN Administration MILD PAIN Benztropine Mesylate 1 mg 06/12/25 17:56 06/17/25 07:57 Benztropine 1 Mg Tablet PO 1 mg BID PRN Administration Mild Extrapyramidal symptoms Benztropine Mesylate 2 mg 06/13/25 21:00 06/16/25 21:46 Benztropine 1 Mg Tablet PO 2 mg BEDTIME REYNA Administration Buspirone HCl 45 mg 06/13/25 21:00 06/16/25 21:44 Buspirone 10 Mg Tablet PO 45 mg BEDTIME REYNA Administration Chlorpromazine HCl 25 mg 06/14/25 15:00 06/17/25 07:39 Chlorpromazine 50 Mg Tablet PO 25 mg TID REYNA Administration Diphenhydramine HCl 50 mg 06/12/25 17:56 06/14/25 09:32 Diphenhydramine 50 Mg/Ml Sdv 1ml IM 50 mg ONCE PRN Administration Severe Extrapyramidal Symptoms Divalproex Sodium 1,500 mg 06/13/25 21:00 06/16/25 21:[address] 500 Mg Tablet PO 1,500 mg BEDTIME REYNA Administration Haloperidol 25 mg 06/13/25 21:00 06/16/25 21:42 Haloperidol 5 Mg Tablet PO 25 mg BEDTIME REYNA Administration Haloperidol Lactate 5 mg 06/12/25 17:56 06/14/25 09:32 Haloperidol Inj 5 Mg/Ml Inj 1 Ml IM 5 mg Q4H PRN Administration Severe Aggression Hydroxyzine Pamoate 50 mg 06/12/25 17:56 06/15/25 20:50 Hydroxyzine 25 Mg Capsule PO 50 mg Q6H PRN Administration ANXIETY Sodium Chloride 1,000 mls @ 125 mls/hr 06/17/25 14:30 06/17/25 14:55 Sodium Chloride 0.9% IV 125 mls/hr .Q8H REYNA Administration Levothyroxine Sodium 112 mcg 06/14/25 06:00 06/17/25 06:13 Levothyroxine 112 Mcg Tablet PO 112 mcg QAM REYNA Administration Lisinopril 10 mg 06/13/25 09:45 06/17/25 07:40 Lisinopril 10 Mg Tablet PO 10 mg DAILY REYNA Administration Lorazepam 2 mg 06/12/25 17:56 06/15/25 18:03 Lorazepam 2 Mg/Ml Inj 1 Ml IM 2 mg Q4H PRN Administration Severe Aggression Neomycin/Polymyxin/Bacitracin 1 applic 06/17/25 06:23 06/17/25 12:49 Ugangbcp-Snht-Cvaiftvzch Oint 28 Gm TOPICAL 1 applic TID PRN Administration INFLAMMATION Prazosin HCl 5 mg 06/13/25 21:00 06/16/25 21:46 Prazosin 5 Mg Capsule PO 5 mg BEDTIME REYNA Administration Trazodone HCl 100 mg 06/13/25 18:29 06/16/25 21:43 Trazodone 50 Mg Tablet PO 100 mg BEDTIME PRN Administration SLEEP PFSH Acute PFSH: Medical History Hypersomnia Snoring Insomnia Chronic post-traumatic stress disorder Borderline personality disorder Schizoaffective disorder, bipolar type Nightmares Psychiatric care Vitals/I&O/Wt Last Vital Signs Temp 97.5 F L 06/17/25 07:55 Pulse 83 06/17/25 14:30 Resp 19 H 06/17/25 14:30 BP 101/59 06/17/25 14:30 Pulse Ox 93 06/17/25 14:30 O2 Del Method Room Air 06/17/25 07:55 06/17/25 06/17/25 06/17/25 06:59 14:59 22:59 Intake Total 240 / 240 Balance 240 / 240 Physical Exam Narrative: General: Moderately drowsy/lethargic patient. Minimally cooperative. No obvious respiratory distress. Neuro/Psych: Cranial nerves II to XII grossly intact. No obvious focal deficits. Chest/Resp: Bilateral equal air entry; chest clinically clear. CVS: Tachycardic with heart rate in the 120s. No obvious murmurs appreciated. GI: Soft and non-tender abdomen. No obvious organomegaly. Extremities: Bilateral equal pulses. No obvious pitting pedal edema. Skin: Mildly clammy. No obvious skin rashes or significant lesions. Moist mucous membranes. MSK: No obvious joint effusions or bony deformities noted. No apparent muscle tenderness. Data 06/17/25 13:55 06/17/25 13:55 Other Labs: D-Dimer = 0.56. APTT = 23.7. INR = 1.04. PT =14.30. CXR: Radiologist's impression: Lungs: Unremarkable. No consolidation. Pleural spaces: Unremarkable. No pleural effusion. No pneumothorax. Heart/Mediastinum: Unremarkable. No cardiomegaly. Bones/joints: There are moderate degenerative changes of the bony structures. IMPRESSION: No acute abnormality identified. EKG 1: My Interpretation: Sinus rhythm with no obvious ST abnormality. 06/17/25 17:19 ABG Interpretation 1: 06/17/25 14:14 ABG pH 7.41 ABG pCO2 38.8 ABG pO2 64.7 L ABG HCO3 24.4 ABG Base Excess -0.1 My Interpretation: Normal ABG. A&P Assessment and plan 1. Symptomatic hypotension: 2. Hyponatremia: 3. Hypokalemia: 4. Psychotic disorder: Plan: Patient transferred to the stepdown unit. IV bolus of normal saline given, which helped to stabilize patient's BP and tachycardia. Of note upon evaluation about 40 minutes later, she was able to answer most of my questions, and has altered mental status remarkably improved. Given this, we will continue IV fluid at 125 cc/h until tomorrow morning/2 L at least. Hold any potential antihypertensive. I suspected possibility of acute pulmonary embolism, given the patient has had this history, but D-dimer is within normal limits, therefore ruling this out. Will allow continuation of patient's antipsychotic medications, as may be adjusted as needed. I will trend cardiac enzymes, and replete potassium orally. Further plans to be adjusted. Repeat labs in the morning, including BMP and lipid panel plus TSH. PDMP PDMP Reviewed: Not Reviewed Coding Level of Care Code 35602 Diagnoses Symptomatic hypotension I95.9 Hyponatremia E87.1 Hypokalemia E87.6 Psychotic disorder F29
[2025-06-17 15:08] LABS: Troponin(5th) Baseline 12 ng/L (0-10)
[2025-06-17 15:10] LABS: Alanine Aminotransferase 31 U/L (0-33); Albumin Level 3.7 g/dL (3.5-5.2); Alkaline Phosphatase 168 U/L (35-105); Anion Gap 19.3 (5-19); Aspartate Amino Transferase 24 U/L (0-32); Blood Urea Nitrogen 13 mg/dL (6-20); Calcium 9.0 mg/dL (8.5-10.5); Carbon Dioxide 22 mmol/L (22-29); Chloride 89 mmol/L (98-107); Globulin 2.1 g/dL (1.3-4.6); Glucose 155 mg/dL (65-115); Osmolality Calculated 267 mOsm/kg (285-295); Potassium 3.3 mmol/L (3.5-5.1); Sodium 127 mmol/L (136-145); Total Protein 5.8 g/dL (6.6-8.7)
--- NOTE | 2025-06-17 15:15 | PC.NURSE ---
at approximately 0740 this RN was alerted by staff that patient had fallen in bathroom. Patient sitting on the floor when I arrived. She denied injury. She had got up from her bed and went to the bathroom with c/o vomit coming out of her nose. No vomit observed. Patient assisted back to bed. Assessment completed without injury observed. Instructed patient and staff to request for assistance with ambulating due to noted gait unsteady. Patient nodded head in understanding.
[2025-06-17 15:45] LABS: INR 1.04 (0.8-1.2); Prothrombin Time 14.30 SECONDS (12.1-14.9)
[2025-06-17 15:46] LABS: Partial Thromboplastin Time 23.7 SECONDS (23.9-36.7)
--- NOTE | 2025-06-17 15:47 | ECG_ITS ---
[facility]25[facility]17 Pat Name: Eliza Hayden Department: Room: 112 Gender: Female Gambling Floor Supervisor: : 1980 Requested By: Leonardo Ramirez Order Number: [id number] Reading MD: LORIE AYALA Measurements Intervals [place] Rate: 79 P: 62 SC: 144 QRS: 64 QRSD: 101 T: 57 QT: 403 QTc: 464 Interpretive Statements SINUS RHYTHM NONSPECIFIC T-WAVE ABNORMALITY Compared to ECG 06/17/2025 14:25:03 No significant changes Electronically Signed On 06-17-2025 18:39:39 COMBAT RIFLE CREWMEMBER by LORIE AYALA [email or web address]
--- NOTE | 2025-06-17 16:21 | PC.NURSE ---
Patient in shower. JOHNATHAN Javier requested for this RN to check on patient. Patient was attempting to to dry herself off. Assisted patient with drying self off and dressing. Requested help from Adelita BHAKTA. Patient briefly lost consciousness and quickly responded to verbal stimuli. Patient remained altered. She was alert to self only. A rapid response was called. Patient continued to exhibit periodic loss of consciousness. Her first bp was 84/45. The bp was then taken manually with a low reading reported by SAMPLE ROOM SUPERVISOR. Patient had a rapid thready pulse and was diaphoretic.Physician arrived with orders to bolus 1 liter NS, labs and transfer to CSU. Her BG was 167.
[2025-06-17] MEDS: potassium chloride oral liq 20 mEq/15 mL UDC PO (18:51)
[2025-06-17 19:48] LABS: Troponin 5 6HR 10.14 ng/L (0-10)
[2025-06-17 19:53] LABS: Troponin 5 6HR Delta -1.86 ng/L (0-12)
[2025-06-17 20:21] VITALS: BP 118/67; PULSE 96; RESP 16; TEMP 36.9; O2SAT 92
--- NOTE | 2025-06-17 20:49 | ECG_ITS ---
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 Measurements Intervals [place]raine Rate: 94 P: 52 AK: 145 QRS: 36 QRSD: 94 T: 10 QT: 352 QTc: 440 Interpretive Statements SINUS RHYTHM POSSIBLE LEFT ATRIAL ENLARGEMENT [-0.1mV P-WAVE IN V1/V2] MODERATE T-WAVE ABNORMALITY, CONSIDER INFERIOR ISCHEMIA [-0.1+ mV T-WAVE IN II/aVF] Compared to ECG 06/17/2025 16:01:01 Possible ischemia now present T-wave abnormality still present Electronically Signed On 06-22-2025 18:24:49 CNC SET UP OPERATOR by Keke Arora M.D. [email or web address]
[2025-06-17] MEDS: divalproex DR 500 mg Tablet 1500 MG PO (22:27)
[2025-06-17 23:18] VITALS: BP 124/73; PULSE 87; RESP 20; TEMP 37.2; O2SAT 93
[2025-06-18 00:20] LABS: Add Urine Microscopic? YES; Glucose Urine UA Negative (Normal); Nitrate Urine Negative (Negative); Specific Gravity, Urine 1.009 (1.005-1.030)
[2025-06-18 03:08] LABS: Anion Gap 14.5 (5-19); Blood Urea Nitrogen 7 mg/dL (6-20); Calcium 8.9 mg/dL (8.5-10.5); Carbon Dioxide 23 mmol/L (22-29); Chloride 101 mmol/L (98-107); Creatinine Clr Calc Pharmacy 127.5456; Glucose 127 mg/dL (65-115); Osmolality Calculated 280 mOsm/kg (285-295); Potassium 3.5 mmol/L (3.5-5.1); Sodium 135 mmol/L (136-145)
[2025-06-18 03:18] LABS: Cholesterol 108 mg/dL (0-200); HDL Cholesterol 34 mg/dL (60-100); Thyroid Stimulating Hormone 1.51 uIU/mL (0.27-4.20); Triglycerides 94 mg/dL (0-150)
[2025-06-18 04:15] VITALS: BP 107/83; PULSE 85; RESP 19; O2SAT 92
[2025-06-18] MEDS: potassium chloride oral liq 20 mEq/15 mL UDC PO ×2 (07:25→17:44)
[2025-06-18 07:48] VITALS: BP 124/76; PULSE 83; RESP 28; TEMP 36.3; O2SAT 92
[2025-06-18 13:29] VITALS: BP 115/64; PULSE 79; RESP 20; O2SAT 93
[2025-06-18 14:41] LABS: Glucose Urine UA Negative (Normal); Nitrate Urine Negative (Negative); Specific Gravity, Urine 1.011 (1.005-1.030)
[2025-06-18 14:46] LABS: Add Urine Microscopic? YES
--- NOTE | 2025-06-18 15:18 | P.PN_ITS ---
Subjective 2 Subjective: Patient seen today in the medical floor. She reports being much more awake, and also notices that her speech is much clearer today, compared to yesterday, when she reports difficulty speaking. She denies any orthostatic dizziness, and reports ability to ambulate well. BP has been soft, otherwise, within normal limits, in the last 12 to 48 hours. Upon evaluation, eugenee Noted to have some 3+ blood with more than 100,000 CFU RBCs. Vitals/I&O/Wt Last Vital Signs Temp 97.4 F L 06/18/25 07:48 Pulse 79 06/18/25 13:29 Resp 20 H 06/18/25 13:29 BP 115/64 06/18/25 13:29 Pulse Ox 93 06/18/25 13:29 O2 Del Method Room Air 06/18/25 13:29 06/18/25 06/18/25 06/18/25 06:59 14:59 22:59 Intake Total 1720 / 1720 Output Total 1400 / 2150 500 / 500 Balance -1400 / 47.083 1220 / 1220 Physical Exam 2 Narrative: General: Awake and alert. Cooperative. Speech mildly slurry, but better. Chest/Resp: Normal respiratory chest movts; no obvious respiratory distress. CVS: Regular heart rate and rhythm. GI: Non-distended; No obvious organomegaly. Extremities: No obvious pitting pedal edema. Skin: No obvious new rashes or new skin lesions. Data 06/17/25 13:55 06/18/25 02:14 Other Labs: Urinalysis x 2 => 3+ blood and more than 100/hpf of RBCs. Apparently due to contamination from ongoing menstrual cycle. Micro: Microbiology 06/17/25 15:56 Blood Culture - Preliminary Blood SPECIMEN COLLECTED 06/17/25 15:55 Blood Culture - Preliminary Blood SPECIMEN COLLECTED A&P Assessment and plan 1. Symptomatic hypotension: Likely iatrogenic, more likely due to multiple drug interaction versus lisinopril induced hypotension 2. Hypokalemia: Otherwise resolved. 3. Hyponatremia: Likely iatrogenic; trazodone stopped. 4. Psychotic disorder: Otherwise not specified. Defer to psychiatrist's note for further elucidation on this for Plan: The acute hypotension with associated acute hyponatremia and hypokalemia all resolved at this time. No obvious cause; workup obviously negative. As a result, I strongly suspect that the acute hypotension and mild hyponatremia & hypokalemia are most likely caused by medication side effect and/or drug interactions. Patient responded well to fluid therapy; all symptoms are apparently resolved. She appears to be significantly drowsy; I attribute this to ongoing administration of multiple anti-psychotic medications. I do not see a need to repeat BMP or any more workup at this time. Of note, like I already alluded to above, the apparent microscopic hematuria is due to contamination from ongoing menstrual period. Therefore, no further evaluation or workup for this is needed. Medically, she is satisfactorily stable, and will be transferred back to the psych unit. The hospitalist will continue to follow (peripherally, at least) for the next few days, to ensure that she remains stable. PDMP PDMP Reviewed: Not Reviewed Attestations 2 Medical Necessity Statement*: N/A. Coding Level of Care Code Acute Code for Chg Fwd Diagnoses Symptomatic hypotension I95.9 Hypokalemia E87.6 Hyponatremia E87.1 Psychotic disorder F29
[2025-06-18 16:43] VITALS: BP 119/77; PULSE 79; RESP 18; TEMP 36.3; O2SAT 97
--- NOTE | 2025-06-18 17:28 | P.NPUPN_ITS ---
Subjective NPU 2 Subjective: Patient presented today reporting that things are going all right in general. She returned from CSU and appeared to be more stable on her feet per staff reports and direct observation. She continued to take the medication as prescribed not needing the Thorazine injections. We discussed the possibility of taking her off of one-to-one tomorrow with a goal of possibly discharging her towards the middle of the week. She denied any side effects to the medication. Mental Status Exam 2 MSE Comments: This is a morbidly obese white female in hospital scrubs with poor grooming and eye contact with bright multicolored hair. No abnormal movements except for some psychomotor retardation. More cooperative with exam in mild to moderate distress. Speech was limited but decreased rate and volume. Mood described as doing a little better, affect less irritable and more subdued. Thought process linear. Thought content: Patient denied suicidal or homicidal ideation, no delusions reported but she appeared to be paranoid maybe had persecutory delusions, she denied auditory or visual hallucinations. Attention and concentration were limited and memory appeared unreliable but none were formally tested. She is alert and oriented times person and place. Insight, judgment and impulse control are impaired. Vitals/I&O/Wt Last Vital Signs Temp 97.4 F L 06/18/25 16:43 Pulse 79 06/18/25 16:43 Resp 18 06/18/25 16:43 BP 119/77 06/18/25 16:43 Pulse Ox 97 06/18/25 16:43 O2 Del Method Room Air 06/18/25 16:43 06/18/25 06/18/25 06/18/25 06:59 14:59 22:59 Intake Total 1720 / 1720 1000 / 2720 Output Total 1400 / 2150 500 / 500 Balance -1400 / 47.083 1220 / 1220 1000 / 2220 Data NPU 06/17/25 13:55 06/18/25 02:14 Micro: Microbiology 06/17/25 15:56 Blood Culture - Preliminary Blood NEGATIVE TO DATE 06/17/25 15:55 Blood Culture - Preliminary Blood NEGATIVE TO DATE Microbiology 06/17/25 15:56 Blood Blood Culture - Preliminary NEGATIVE TO DATE 06/17/25 15:55 Blood Blood Culture - Preliminary NEGATIVE TO DATE A&P Assessment and plan 1. Schizoaffective disorder, bipolar type: 2. Borderline personality disorder: 3. Chronic post-traumatic stress disorder: 4. Suicidal ideation: Plan: This is a 44-year-old white female with a history of PTSD, schizoaffective disorder, borderline personality disorder and aggression who presented with suicidal ideation currently having been consistent with her outpatient services. 1. Continue current medication. Discontinue Invega officially. Started Thorazine 25 mg p.o. 3 times daily and ordered Thorazine injectable for forced medication with guardian's permission and will await that to start the Thorazine and titrate to effect. Patient taking the medication as directed 2. Encourage individual, group and milieu therapy. 3. Continue one-to-one but will consider discontinuing tomorrow in hopes of discharge soon. 4. Obtain collateral information. 5. Observe against the backdrop of the 96-hour hold. Identified the patient has a guardian so hold will be rescinded. Patient with multiple seclusions and not interested in treatment. We will likely initiate medication likely long-acting injectable to assist with her functioning but given her aggressiveness and unwillingness to participate and a desire expressed that she wants to go back to [facility]. Will talk to the guardian about getting a long-acting injectable initiated and then allowing her to come home and manage this situation. 6. Will explore whether or not there are any addiction issues and encourage sober living treatment after discharge at the highest level care to which she is willing to commit if so. 7. Agree with transfer to CSU and appreciate hospitalist involvement. Patient with rapid response called secondary to altered mental status. We will continue to follow along CSU. Patient to return to the neuropsychiatric unit today. PDMP PDMP Reviewed: Not Reviewed Involuntary Hold Information 2 Hold Status: Legal Status: 96 Hour Hold Date/Time Hold Expires: 1 08/17/24@1645 Guardian Attestations NPU 2 Medical Necessity Statement*: Inpatient hospitalization is medically necessary and the clinically appropriate intervention at this time. We will monitor/initiate medications and make changes as indicated. Likely length of stay 2-4 days. Coding Level of Care Code Acute Code for [facility] [employer] Fwd Diagnoses Schizoaffective disorder, bipolar type F25.0 Borderline personality disorder F60.3 Chronic post-traumatic stress disorder F43.12 Suicidal ideation R45.852
[2025-06-18] MEDS: divalproex DR 500 mg Tablet 1500 MG PO (20:19)
[2025-06-18 21:24] VITALS: BP 129/80; PULSE 72; RESP 18; TEMP 36.3; O2SAT 97
[2025-06-19 06:00] VITALS: BP 121/72; PULSE 78; RESP 18; TEMP 36.8; O2SAT 98
--- NOTE | 2025-06-19 08:01 | P.PN_ITS ---
Subjective 2 Subjective: Patient seen this morning in the psych floor. She was having breakfast in the break room. The nurse informed that patient has been walking around without any more incidences of dizziness or stumbling. Patient however reports being a bit drowsy this morning when she woke up, but this has resolved completely. Otherwise, she has been walking around with no more incidents. Her blood pressure also remained stable/within normal limits since she returned to the psych floor yesterday. She reports being much more awake and alert, I believe she still looked a bit drugged up. Vitals/I&O/Wt Last Vital Signs Temp 98.3 F 06/19/25 06:00 Pulse 78 06/19/25 06:00 Resp 18 06/19/25 06:00 BP 121/72 06/19/25 06:00 Pulse Ox 98 06/19/25 06:00 O2 Del Method Room Air 06/19/25 06:00 06/18/25 06/19/25 06/19/25 22:59 06:59 14:59 Intake Total 1000 / 2720 Balance 1000 / 2220 Physical Exam 2 Narrative: General: Awake and alert. Looking mildly sleepy. Cooperative. Chest/Resp: Normal respiratory chest movts; no obvious respiratory distress. CVS: Regular heart rate and rhythm. GI: Non-distended; No obvious organomegaly. Extremities: No obvious pitting pedal edema. Skin: No obvious new rashes or new skin lesions. Data 06/17/25 13:55 06/18/25 02:14 Micro: Microbiology 06/17/25 15:56 Blood Culture - Preliminary Blood NEGATIVE TO DATE 06/17/25 15:55 Blood Culture - Preliminary Blood NEGATIVE TO DATE A&P Assessment and plan 1. Symptomatic hypotension: Very likely/apparently iatrogenic. Resolved at this time with the withholding/cessation of suspected etiologic medication(s). 2. Hypokalemia: 3. Acute prerenal failure: As manifested by BUN 30 jumped from baseline of 7 to 13 as of 2 days ago, and creatinine drop from baseline of 0.7 to 1.4 during the hypotension episode. All this is resolved as of yesterday, with BUN and creatinine levels returning back to baseline of 7 and 0.8 respectively.. 4. Hyponatremia: Likely iatrogenic. Sodium back to 135. 5. Psychotic disorder: Not otherwise specified by me. Plan: Patient has acute medical problems, as listed above, all resolved. I also think that she may be a bit too drowsy, which may be contributing to her drowsiness and stumbling. These are most likely caused by the psychotropic tropic medication she is taking. I will defer to the psychiatrist to make adjustments of the psychotropic medications, as deemed assisted. From my standpoint, I have stopped patient's trazodone and lisinopril, given the hyponatremia and hypotension respectively. With these acute problems resolved, I do not recommend restarting of the trazodone or lisinopril. The hospitalist will remain around for further interventions or help as may be needed. Otherwise, we do not need to see patient any longer on a routine basis. With patient's acute medical problems all resolved, I hereby sign off. PDMP PDMP Reviewed: Not Reviewed Attestations 2 Medical Necessity Statement*: N/A. Coding Level of Care Code Acute Code for Chg Fwd Diagnoses Symptomatic hypotension I95.9 Hypokalemia E87.6 Acute prerenal failure N17.9 Hyponatremia E87.1 Psychotic disorder F29
[2025-06-19] MEDS: potassium chloride oral liq 20 mEq/15 mL UDC PO (08:27)
--- NOTE | 2025-06-19 09:57 | PC.PT ---
Patient screened by OT. She is independent in unit demonstrating no balance difficulties. No PT evaluation needed at this time. PT ordered discontinued.
--- NOTE | 2025-06-19 11:56 | PC.NURSE ---
Dr. Heart gave verbal order to DC one to one sitter.
--- NOTE | 2025-06-19 13:13 | P.NPUPN_ITS ---
Subjective NPU 2 Subjective: Patient presented today reporting that she is feeling better in general. The Thorazine 3 times daily has appeared effective and she is not endorsing any feelings of aggression and has tolerated being off of one-to-one. She is requesting to be able to be assisted in cutting her hair which we will consider likely tomorrow. We discussed her continuing to demonstrate appropriate self- control. We discussed the fact that her mother was looking to get some home health to take the pressure off of patient. Patient seemed to be reporting now that she would not let her mom go to a long term and that she would likely return and continue to help mom. We discussed 1 might feel an obligation to care for someone but that you need to make sure you are exercising self-care first to avoid moments like she has experienced in the past week. She denies any side effects to the medication other than being a little tired and a little lethargic. We discussed the likelihood of discharge in the next 48 hours. Mental Status Exam 2 MSE Comments: This is a morbidly obese white female in hospital scrubs with poor grooming and eye contact with bright multicolored hair. No abnormal movements except for some psychomotor retardation. More cooperative with exam in mild to moderate distress. Speech was limited but decreased rate and volume. Mood described as doing a little better, affect less irritable and more subdued. Thought process linear. Thought content: Patient denied suicidal or homicidal ideation, no delusions reported but she appeared to be paranoid maybe had persecutory delusions, she denied auditory or visual hallucinations. Attention and concentration were limited and memory appeared unreliable but none were formally tested. She is alert and oriented times person and place. Insight, judgment and impulse control are impaired. Vitals/I&O/Wt Last Vital Signs Temp 98.3 F 06/19/25 06:00 Pulse 78 06/19/25 06:00 Resp 18 06/19/25 06:00 BP 121/72 06/19/25 06:00 Pulse Ox 98 06/19/25 06:00 O2 Del Method Room Air 06/19/25 06:00 06/18/25 06/19/25 06/19/25 22:59 06:59 14:59 Intake Total 1000 / 2720 Balance 1000 / 2220 Data NPU 06/17/25 13:55 06/18/25 02:14 Micro: Microbiology 06/17/25 22:55 Urine Culture - Preliminary Urine,Clean Catch 06/17/25 15:56 Blood Culture - Preliminary Blood NEGATIVE TO DATE 06/17/25 15:55 Blood Culture - Preliminary Blood NEGATIVE TO DATE Microbiology 06/17/25 22:55 Urine,Clean Catch Urine Culture - Preliminary 06/17/25 15:56 Blood Blood Culture - Preliminary NEGATIVE TO DATE 06/17/25 15:55 Blood Blood Culture - Preliminary NEGATIVE TO DATE A&P Assessment and plan 1. Schizoaffective disorder, bipolar type: 2. Borderline personality disorder: 3. Chronic post-traumatic stress disorder: 4. Suicidal ideation: Plan: This is a 44-year-old white female with a history of PTSD, schizoaffective disorder, borderline personality disorder and aggression who presented with suicidal ideation currently having been consistent with her outpatient services. 1. Continue current medication. Discontinue Invega officially. Started Thorazine 25 mg p.o. 3 times daily and ordered Thorazine injectable for forced medication with guardian's permission and will await that to start the Thorazine and titrate to effect. Patient taking the medication as directed 2. Encourage individual, group and milieu therapy. 3. Continue one-to-one but will consider discontinuing tomorrow in hopes of discharge soon. Started every 15 minute checks for safety and will monitor for likely discharge in the next 48 hours. 4. Obtain collateral information. 5. Observe against the backdrop of the 96-hour hold. Identified the patient has a guardian so hold will be rescinded. Patient with multiple seclusions and not interested in treatment. We will likely initiate medication likely long-acting injectable to assist with her functioning but given her aggressiveness and unwillingness to participate and a desire expressed that she wants to go back to longterm. Will talk to the guardian about getting a long-acting injectable initiated and then allowing her to come home and manage this situation. 6. Will explore whether or not there are any addiction issues and encourage sober living treatment after discharge at the highest level care to which she is willing to commit if so. 7. Agree with transfer to [facility] and appreciate hospitalist involvement. Patient with rapid response called secondary to altered mental status. We will continue to follow along [facility]. Patient to return to the neuropsychiatric unit 06/18/2025. PDMP PDMP Reviewed: Not Reviewed Involuntary Hold Information 2 Hold Status: Legal Status: 96 Hour Hold Date/Time Hold Expires: 1 08/17/24@1645 Guardian Attestations NPU 2 Medical Necessity Statement*: Inpatient hospitalization is medically necessary and the clinically appropriate intervention at this time. We will monitor/initiate medications and make changes as indicated. Likely length of stay 1-3 days. Coding Level of Care Code Acute Code for [facility] Fwd Diagnoses Schizoaffective disorder, bipolar type F25.0 Borderline personality disorder F60.3 Chronic post-traumatic stress disorder F43.12 Suicidal ideation R45.851
[2025-06-19 14:00] VITALS: BP 112/69; PULSE 87; RESP 17; TEMP 36.3; O2SAT 94
[2025-06-19] MEDS: divalproex DR 500 mg Tablet 1500 MG PO (20:51)
[2025-06-19 20:58] VITALS: BP 147/98; PULSE 91; RESP 18; TEMP 36.4; O2SAT 99
[2025-06-20 06:00] VITALS: BP 128/85; PULSE 74; RESP 18; TEMP 36.6; O2SAT 90
[2025-06-20 14:00] VITALS: BP 153/104; PULSE 90; RESP 16; TEMP 36.7; O2SAT 96
--- NOTE | 2025-06-20 14:20 | P.NPUPN_ITS ---
Subjective NPU 2 Subjective: Patient presented today reporting that she is doing okay. She reports she spoke to her mother/guardian and a positive conversation. She identifies that the plan is to have some additional support have the opportunity that if she needs to leave or get some free time or space that that be possible. She reports that she would want her mom to be in a detention and is not under duress or resentment. She reports medication is working well at this dose and we agreed to discuss it with her guardian as well about maintaining this current dose. She denied any side effects to her medication and was looking forward to discharge tomorrow. Mental Status Exam 2 MSE Comments: This is a morbidly obese white female in hospital scrubs with poor grooming and eye contact with only some mild coloration of the top of her head because it was shaved with the permission of her guardian. No abnormal movements except for resolving psychomotor retardation. More cooperative with exam in mild distress. Speech was more spontaneous but decreased rate and volume. Mood described as doing a little better, affect less irritable and less subdued. Thought process linear. Thought content: Patient denied suicidal or homicidal ideation, no delusions reported but she appeared to be paranoid maybe had persecutory delusions, she denied auditory or visual hallucinations. Attention and concentration were limited and memory appeared unreliable but none were formally tested. She is alert and oriented x 3. Insight, judgment and impulse control are limited but improving. Vitals/I&O/Wt Last Vital Signs Temp 97.8 F 06/20/25 06:00 Pulse 74 06/20/25 06:00 Resp 18 06/20/25 06:00 BP 128/85 06/20/25 06:00 Pulse Ox 90 06/20/25 06:00 O2 Del Method Room Air 06/20/25 06:00 Data NPU 06/17/25 13:55 06/18/25 02:14 Micro: Microbiology 06/17/25 22:55 Urine Culture - Final Urine,Clean Catch Microbiology 06/17/25 22:55 Urine,Clean Catch Urine Culture - Final A&P Assessment and plan 1. Schizoaffective disorder, bipolar type: 2. Borderline personality disorder: 3. Chronic post-traumatic stress disorder: 4. Suicidal ideation: Plan: This is a 44-year-old white female with a history of PTSD, schizoaffective disorder, borderline personality disorder and aggression who presented with suicidal ideation currently having been consistent with her outpatient services. 1. Continue current medication. Discontinue Invega officially. Started Thorazine 25 mg p.o. 3 times daily and ordered Thorazine injectable for forced medication with guardian's permission and will await that to start the Thorazine and titrate to effect. Patient taking the medication as directed 2. Encourage individual, group and milieu therapy. 3. Continue one-to-one but will consider discontinuing tomorrow in hopes of discharge soon. Started every 15 minute checks for safety and will monitor for likely discharge tomorrow. 4. Obtain collateral information. 5. Observe against the backdrop of the 96-hour hold. Identified the patient has a guardian so hold will be rescinded. Patient with multiple seclusions and not interested in treatment. We will likely initiate medication likely long-acting injectable to assist with her functioning but given her aggressiveness and unwillingness to participate and a desire expressed that she wants to go back to detention. Will talk to the guardian about getting a long-acting injectable initiated and then allowing her to come home and manage this situation. 6. Will explore whether or not there are any addiction issues and encourage sober living treatment after discharge at the highest level care to which she is willing to commit if so. 7. Agree with transfer to [facility] and appreciate hospitalist involvement. Patient with rapid response called secondary to altered mental status. We will continue to follow along [facility]. Patient returned to the neuropsychiatric unit 06/18/2025. PDMP PDMP Reviewed: Not Reviewed Involuntary Hold Information 2 Hold Status: Legal Status: 96 Hour Hold Date/Time Hold Expires: 08/17/24@1645 Guardian Attestations NPU 2 Medical Necessity Statement*: Inpatient hospitalization is medically necessary and the clinically appropriate intervention at this time. We will monitor/initiate medications and make changes as indicated. Likely length of stay 1-2 days. Coding Level of Care Code Acute Code for [facility] Fwd Diagnoses Schizoaffective disorder, bipolar type F25.0 Borderline personality disorder F60.3 Chronic post-traumatic stress disorder F43.12 Suicidal ideation R45.853
--- NOTE | 2025-06-20 15:06 | PC.NURSE ---
Pt.'s mother called and said it was ok with her for pt. to shave her head.
[2025-06-20] MEDS: divalproex DR 500 mg Tablet 1500 MG PO (20:43)
--- NOTE | 2025-06-20 21:46 | PC.NURSE ---
WOUND CARE PATIENT HAS EXTENSIVE EXCORIATION TO THE LEFT THIGH/GROIN AREA. EXCORIATION SPANS FROM THE LEFT MOST LATERAL SIDE OF THIGH/GROIN FOLD, TO THE PERINEUM, AND STARTING UP THE RIGHT THIGH/GROIN AREA. AREA IS A RED BEEFY RAW WOUNDS. TOTAL AREA WAS CLEANSED USING SHAVING CREAM CAREFULLY. NYSTATIN POWDER APPLIED AND INTERDRY ABSORBENT CLOTH APPLIED. DOCTOR MCDANIEL NOTIFIED.
[2025-06-20 21:53] VITALS: BP 94/58; PULSE 74; RESP 18; TEMP 36.9; O2SAT 95
[2025-06-21 05:56] VITALS: BP 136/81; PULSE 102; RESP 18; TEMP 36.7; O2SAT 98
--- NOTE | 2025-06-21 12:10 | DCPLANNER ---
IMM was given to pt and her guardian and rights expalined and copy placed in file.
[2025-06-21 13:10] VITALS: BP 136/81; PULSE 102; RESP 18; TEMP 36.7; O2SAT 98
[2025-06-21 13:53] VITALS: BP 126/77; PULSE 68; RESP 16; TEMP 37.1; O2SAT 94
== END 2025-06-21 15:00 | disposition home or self-care (01) | DRG 885 ==
LOC: ER 16:50 → NP 17:38 → CSU 06-17 14:11 → NP 06-18 16:24
PROVIDERS: Family Medicine; Admitting Provider Psychiatry & Neurology Psychiatry; Emergency Provider Family Medicine; PCP Pediatrics; Visit Provider Psychiatry & Neurology Psychiatry
DX: F25.0 Schizoaffective disorder, bipolar type (principal); R45.851 Suicidal ideations; Z68.42 Body mass index [BMI] 45.0-49.9, adult; N17.9 Acute kidney failure, unspecified; E87.1 Hypo-osmolality and hyponatremia; F60.3 Borderline personality disorder; F43.12 Post-traumatic stress disorder, chronic; E66.01 Morbid (severe) obesity due to excess calories; Z81.8 Family history of other mental and behavioral disorders; J45.909 Unspecified asthma, uncomplicated; Z79.51 Long term (current) use of inhaled steroids; E11.9 Type 2 diabetes mellitus without complications; I10 Essential (primary) hypertension; Z83.3 Family history of diabetes mellitus; Z83.6 Family history of other diseases of the respiratory system; Z79.82 Long term (current) use of aspirin; I95.9 Hypotension, unspecified; E87.6 Hypokalemia; Z78.1 Physical restraint status
CPT/HCPCS: 36415; 36600; 71045; 80048; 80053; 80061; 80164; 80307; 81001; 82550; 82803; 84443; 84484; 85025; 85378; 85610; 85730; 87040; 87086; 93005; 94664; 96372; 97150; 97165; 99285; J1200; J1630; J2060; J3486; J7030; J9999; Q0161